=== PATIENT | male | born 1940 | race Caucasian/White ===

== ENCOUNTER 2017-07-28 01:18 | Emergency (ER) | END 2017-07-28 03:21 | disposition home or self-care (01) ==

== ENCOUNTER 2018-07-17 17:54 | Inpatient (IN) | payer MEDICARE, OTHER ==
[~2018-07-17] VITALS: Ht 160 cm; Wt 106.4 kg
[~2018-07-17 17:54] MED LIST: ASPI-817 PO; ATOR10TA65 PO; CELE100C PO; CILO50TA PO; DOCU250C58 PO; ERGO500013 PO; MEMA1CAP3 PO; OLME1TAB29 PO; TAMS0.4C2 PO
[2018-07-17] MEDS ORDERED: SODIUM CHLORIDE 0.9% 1L BAG IV* STA (17:55)
--- NOTE | 2018-07-17 18:13 | ERD ---
ER Documentation Chief Complaint Chief Complaint HPI This is a 77-year-old female with a history of coronary disease, status post stents, history of mild systolic heart failure, presents with intermittent exertional chest pain for the last 2 days. Patient states she also sometimes feels anxious. She denies any leg swelling, cough, hemoptysis or fever. She has been compliant with her medications, she denies any recent weight gain. Lying down makes her feel better ROS All systems reviewed and are negative except as per history of present illness. Medications Home Meds Reported Medications Memantine HCl/Donepezil HCl (Namzaric 28 mg-10 mg Capsule) 1 Each Cap.spr.24, 1 EACH PO 07/28/17 Aspirin* (Aspirin* EC) 81 Mg Tablet.dr, 81 MG PO DAILY, TAB 07/28/17 Atorvastatin Calcium (Atorvastatin Calcium) 10 Mg Tablet, 10 MG PO QHS, #30 TAB 07/28/17 Tamsulosin Hcl* (Tamsulosin Hcl*) 0.4 Mg Cap.er.24h, 0.4 MG PO DAILY, CAP 07/28/17 Uxkuntsexx-Mtcyahprev-CRNK (Tribenzor) 20-5-12.5 Mg Tablet, 1 TAB PO DAILY, TAB 07/28/17 Cilostazol* (Cilostazol*) 50 Mg Tablet, 50 MG PO DAILY, TAB 07/28/17 Celecoxib* (Celebrex*) 100 Mg Capsule, 100 MG PO DAILY, CAP 07/28/17 Docusate Sodium* (Colace*) 250 Mg Capsule, 250 MG PO BID, #60 CAP 07/28/17 Ergocalciferol (Vitamin D2) (VITAMIN D2) 50,000 Unit Capsule, 45671 UNIT PO, CAP 07/28/17 Allergies Allergies: Coded Allergies: No Known Allergy (Unverified , 07/28/17) PMhx/Soc History of Surgery: No Anesthesia Reaction: No Hx Cardiac Disorders: Yes (HTN. ANGINA. ) Hx Miscellaneous Medical Probl: Yes (OSTEOARTHRITIS. LUMBAR DISK PROBLEMS. ) Hx Alcohol Use: No Hx Substance Use: No Hx Tobacco Use: No Physical Exam Physical Exam Const: No acute distress Head: Atraumatic Eyes: Normal Conjunctiva ENT: Normal External Ears, Nose and Mouth. Neck: Full range of motion. No meningismus. Resp: Clear to auscultation bilaterally Cardio: Regular rate and rhythm, no murmurs Abd: Soft, non tender, non distended. Normal bowel sounds Skin: No petechiae or rashes Back: No midline or flank tenderness Ext: No cyanosis, or edema Neur: Awake and alert Psych: Normal Mood and Affect Results 24 hrs Current Medications Medications Dose Sig/Ramos Start Time Status Last (Trade) Ordered Route PRN Stop Time Admin Dose Reason Admin Sodium 500 ml BOLUS OVER 2 07/17/18 DC Chloride HOURS STAT 17:55 07/17/18 (NS) IV* 17:58 Procedures/MDM This 77-year-old female presents for evaluation of chest pain. Time of arrival she was chest pain-free, her blood pressure was initially 200 systolic, however this went down to 160s systolic without any intervention. She denied any discomfort while in the emergency department her cardiac workup was overall unremarkable, with a negative troponin. X-ray was negative, I do not suspect aortic dissection or pneumothorax, I have a lower suspicion for pulmonary embolism. Given her significant cardiac history, I feel that she is high risk and therefore recommend admission, the patient and her son agreed to this plan of care, she will be admitted to Dr. Espana. EKG: Rate/Rhythm: Normal Sinus Rhythm QRS, ST, T-waves: No changes consistent w/ acute ischemia Impression: No evidence of ischemia or arrhythmia Departure Diagnosis: Primary Impression: Chest pain Chest pain type: unspecified Qualified Codes: R07.9 - Chest pain, unspecified Condition: Stable CARLOS KWON MD Jul 17, 2018 18:13
[2018-07-17] MEDS ORDERED: FUROSEMIDE 20 MG INJ IV ONE (20:00)
[2018-07-17] MEDS ORDERED: LEVOFLOXACIN 750MG/D5W (PMX) 150 ML IVPB ONE (20:30)
--- NOTE | 2018-07-17 21:01 | ERD ---
ER Documentation Chief Complaint Chief Complaint sob starting last night. denies cp HPI This 77-year-old male presents for evaluation of shortness of breath. Family has pulse ox at home and is noted that his pulse ox has been around 86, brought in by EMS, he experienced a similar episode last year and was diagnosed with a pneumonia. Her family has no history of heart failure, the patient denies chest pain, he has been having a cough. There are no alleviating or aggravating factors he has had subjective fever at home ROS All systems reviewed and are negative except as per history of present illness. Medications Home Meds Reported Medications Memantine HCl/Donepezil HCl (Namzaric 28 mg-10 mg Capsule) 1 Each Cap.spr.24, 1 EACH PO 07/28/17 Aspirin* (Aspirin* EC) 81 Mg Tablet.dr, 81 MG PO DAILY, TAB 07/28/17 Atorvastatin Calcium (Atorvastatin Calcium) 10 Mg Tablet, 10 MG PO QHS, #30 TAB 07/28/17 Tamsulosin Hcl* (Tamsulosin Hcl*) 0.4 Mg Cap.er.24h, 0.4 MG PO DAILY, CAP 07/28/17 Diuhhkieqp-Fkewwnoean-OTQS (Tribenzor) 20-5-12.5 Mg Tablet, 1 TAB PO DAILY, TAB 07/28/17 Cilostazol* (Cilostazol*) 50 Mg Tablet, 50 MG PO DAILY, TAB 07/28/17 Celecoxib* (Celebrex*) 100 Mg Capsule, 100 MG PO DAILY, CAP 07/28/17 Docusate Sodium* (Colace*) 250 Mg Capsule, 250 MG PO BID, #60 CAP 07/28/17 Ergocalciferol (Vitamin D2) (VITAMIN D2) 50,000 Unit Capsule, 69043 UNIT PO, CAP 07/28/17 Allergies Allergies: Coded Allergies: No Known Allergy (Unverified , 07/28/17) PMhx/Soc Medical and Surgical Hx: pt denies Surgical Hx History of Surgery: No Anesthesia Reaction: No Hx Cardiac Disorders: Yes (HTN. ANGINA. ) Hx Miscellaneous Medical Probl: Yes (OSTEOARTHRITIS. LUMBAR DISK PROBLEMS. ) Hx Alcohol Use: No Hx Substance Use: No Hx Tobacco Use: No Smoking Status: Never smoker Physical Exam Vitals Vital Signs Date Temp Pulse Resp B/P (MAP) Pulse Ox O2 O2 Flow FiO2 Time Delivery Rate 07/17/18 Nasal 2 18:44 Cannula 07/17/18 99.9 81 20 151/86 95 Nasal 2.0 18:41 (107) Cannula 07/17/18 Nasal 2.0 18:15 Cannula 07/17/18 98.1 84 20 150/89 88 18:14 (109) Physical Exam Const: No acute distress Head: Atraumatic Eyes: Normal Conjunctiva ENT: Normal External Ears, Nose and Mouth. Neck: Full range of motion. No meningismus. Resp: Bilateral rales Cardio: Regular rate and rhythm, no murmurs Abd: Soft, non tender, non distended. Normal bowel sounds Skin: No petechiae or rashes Back: No midline or flank tenderness Ext: No cyanosis, or edema Neur: Awake and alert Psych: Normal Mood and Affect Result Diagram: 07/17/18183107/17/181831 Results 24 hrs Laboratory Tests Test 07/17/18 18:21 07/17/18 18:22 07/17/18 18:32 07/17/18 18:41 Urine Color YELLOW Urine Clarity CLEAR Urine pH 7.0 Urine Specific 1.018 [place] Urine Ketones NEGATIVE mg/dL Urine Nitrite NEGATIVE mg/dL Urine Bilirubin NEGATIVE mg/dL Urine Urobilinogen NEGATIVE mg/dL Urine Leukocyte NEGATIVE Jose/ul Esterase Urine Microscopic 3 /HPF RBC Urine Microscopic 1 /HPF WBC Urine Mucus FEW /HPF Urine Hemoglobin 1+ mg/dL Urine Glucose NEGATIVE mg/dL Urine Total Protein NEGATIVE mg/dl Lactic Acid Level 1.4 mmol/L B-Type Natriuretic 575 PG/ML Peptide White Blood Count 10.8 10^3/ul Red Blood Count 4.74 10^6/ul Hemoglobin 14.7 g/dl Hematocrit 45.0 % Mean Corpuscular 94.9 fl Volume Mean Corpuscular 31.0 pg Hemoglobin Mean Corpuscular 32.7 g/dl Hemoglobin Concent Red Cell 12.4 % Distribution Width Platelet Count 169 10^3/UL Mean Platelet 9.6 fl Volume Immature 0.500 % Granulocytes % Neutrophils % 82.7 % Lymphocytes % 8.2 % Monocytes % 7.9 % Eosinophils % 0.3 % Basophils % 0.4 % Nucleated Red Blood 0.0 /100WBC Cells % Immature 0.050 10^3/ul Granulocytes # Neutrophils # 9.0 10^3/ul Lymphocytes # 0.9 10^3/ul Monocytes # 0.9 10^3/ul Eosinophils # 0.0 10^3/ul Basophils # 0.0 10^3/ul Nucleated Red Blood 0.0 10^3/ul Cells # Prothrombin Time 14.9 Sec Prothrombin Time 1.2 Ratio INR International 1.16 Normalized Ratio Activated 31.3 Sec Partial Thromboplas t Time Sodium Level 137 mmol/L Potassium Level 4.0 mmol/L Chloride Level 99 mmol/L Carbon Dioxide 30 mmol/L Level Anion Gap 8 Blood Urea Nitrogen 17 mg/dl Creatinine 0.74 mg/dl Est Glomerular mL/min Filtrat Rate mL/min Glucose Level 106 mg/dl Calcium Level 8.9 mg/dl Total Bilirubin 1.3 mg/dl Direct Bilirubin 0.00 mg/dl Indirect Bilirubin 1.3 mg/dl Aspartate Amino 22 IU/L Transf (AST/SGOT) Alanine 13 IU/L Aminotransferase (A LT/SGPT) Alkaline 50 IU/L Phosphatase Troponin I < 0.012 ng/ml Total Protein 7.2 g/dl Albumin 3.7 g/dl Globulin 3.50 g/dl Albumin/Globulin 1.05 Ratio POC Venous Lactate 1.3 mmol/L Current Medications Medications Dose Sig/Ramos Start Time Status Last (Trade) Ordered Route PRN Stop Time Admin Dose Reason Admin Sodium 500 ml BOLUS OVER 2 07/17/18 DC 07/17/18 Chloride HOURS STAT 17:55 07/17/18 17:55 (NS) IV* 17:58 Furosemide 20 mg ONCE ONCE 07/17/18 DC (Lasix) IV 20:00 07/17/18 20:01 150 ml @ ONCE ONCE 07/17/18 Levofloxacin/ 100 mls/hr IVPB 20:30 07/17/18 Dextrose 21:59 Procedures/MDM This is a 77-year-old male presents for evaluation of shortness of breath. Thang gallardo also with subjective fevers at home, he was placed on nasal cannula, the patient denies any chest pain. His troponin was negative, his chest x-ray showed pneumonia versus CHF, his blood pressure is mildly elevated and he has no fever, this point I think there may be a component of CHF, thus he will be diuresed with Lasix, given his diagnoses not definitive he will be treated with Levaquin, this point I do not suspect sepsis or septic shock. Patient will be admitted to Dr. Meza EKG: Rate/Rhythm: Normal Sinus Rhythm QRS, ST, T-waves: No changes consistent w/ acute ischemia Impression: No evidence of ischemia or arrhythmia Departure Diagnosis: Primary Impression: Chest pain Chest pain type: unspecified Qualified Codes: R07.9 - Chest pain, unspecified Condition: Stable CARLOS KWON MD Jul 17, 2018 21:01
[2018-07-17 22:11] VITALS: PULSE 87
[2018-07-17 22:12] VITALS: BP 135/86; PULSE 88; RESP 18
[2018-07-17 22:36] VITALS: Ht 160 cm; Wt 106.4 kg
[2018-07-17 23:29] VITALS: BP 155/71; PULSE 79; RESP 18
[2018-07-18] VITALS (11 sets, daily range): BP systolic 101–159; BP diastolic 52–74; PULSE 73–118; RESP 17–20
--- NOTE | 2018-07-18 01:44 | HP ---
Date/Time of Note Date/Time of Note DATE: 07/18/18 TIME: 01:44 Assessment/Plan VTE Prophylaxis Pharmacological prophylaxis: heparin Lines/Catheters IV Catheter Type (from Nrs): Peripheral IV Urinary Cath still in place: No Assessment/Plan Assessment/Plan 77-year-old male with a history of hypertension, dyslipidemia, Parkinson's disease, BPH brought to the ER for shortness of breath and hypoxia, most likely secondary to pulmonary edema or pneumonia PLAN Supplemental oxygen, bronchodilators, Lasix, IV antibiotic will obtain 2D echo Continue home meds. Adjust as needed PT eval prior to discharge Result Diagram: 07/17/18 1832 07/17/18 1832 Results 24hrs Laboratory Tests Test 07/17/18 18:21 07/17/18 18:22 07/17/18 18:32 07/17/18 18:41 Urine Color YELLOW Urine Clarity CLEAR Urine pH 7.0 Urine Specific [place] 1.018 Urine Ketones NEGATIVE Urine Nitrite NEGATIVE Urine Bilirubin NEGATIVE Urine Urobilinogen NEGATIVE Urine Leukocyte Esterase NEGATIVE Urine Microscopic RBC 3 Urine Microscopic WBC 1 Urine Mucus FEW A Urine Hemoglobin 1+ H Urine Glucose NEGATIVE Urine Total Protein NEGATIVE Lactic Acid Level 1.4 B-Type Natriuretic 575 H Peptide White Blood Count 10.8 Red Blood Count 4.74 Hemoglobin 14.7 Hematocrit 45.0 Mean Corpuscular Volume 94.9 Mean Corpuscular 31.0 Hemoglobin Mean Corpuscular 32.7 Hemoglobin Concent Red Cell Distribution 12.4 Width Platelet Count 169 Mean Platelet Volume 9.6 Immature Granulocytes % 0.500 H Neutrophils % 82.7 H Lymphocytes % 8.2 L Monocytes % 7.9 Eosinophils % 0.3 Basophils % 0.4 Nucleated Red Blood 0.0 Cells % Immature Granulocytes # 0.050 H Neutrophils # 9.0 H Lymphocytes # 0.9 Monocytes # 0.9 Eosinophils # 0.0 Basophils # 0.0 Nucleated Red Blood 0.0 Cells # Prothrombin Time 14.9 Prothrombin Time Ratio 1.2 INR International 1.16 Normalized Ratio Activated 31.3 Partial Thromboplast Time Sodium Level 137 Potassium Level 4.0 Chloride Level 99 Carbon Dioxide Level 30 Anion Gap 8 Blood Urea Nitrogen 17 Creatinine 0.74 Est Glomerular Filtrat Rate mL/min Glucose Level 106 Calcium Level 8.9 Total Bilirubin 1.3 Direct Bilirubin 0.00 Indirect Bilirubin 1.3 H Aspartate Amino 22 Transf (AST/SGOT) Alanine 13 Aminotransferase (ALT/SG PT) Alkaline Phosphatase 50 Troponin I < 0.012 Total Protein 7.2 Albumin 3.7 Globulin 3.50 H Albumin/Globulin Ratio 1.05 POC Venous Lactate 1.3 HPI/ROS Admit Date/Time Admit Date/Time Jul 17, 2018 at 20:13 Hx of Present Illness This is a 77-year-old male with a history of hypertension, dyslipidemia, Parkinson's disease, BPH who was brought to the ER for shortness of breath and dry cough. Symptom has been progressively getting worse for the past few days. Pulse ox at home showed oxygen saturation of 86%. When presented to ER, O2 sat was 88% on room air. Chest x-ray shows edema versus pneumonia. No chest pain. PMH/Family/Social Past Medical History PMH/Family/Social Past Medical History Medical History: other (see hpi) Coded Allergies: No Known Drug Allergy (Verified Allergy, Unknown, 02/27/16) Past Surgical History Past Surgical Hx: other (see hpi) Family History Significant Family History: no pertinent family hx Social History Alcohol Use: other Smoking Status: Unknown if ever smoked Drug Use: other Medications Current Medications Influenza Virus Vaccine Quadrival (Fluzone) 0.5 ml ONCE ONCE IM* ; Start 07/18/18 at 10:00; Stop 07/18/18 at 10:01 IV Flush (NS 3 ml) 3 ml PER PROTOCOL IV ; Start 07/18/18 at 02:00; Status UNV Ondansetron HCl (Zofran Inj) 4 mg Q6H PRN IV NAUSEA AND/OR VOMITING; Start 07/18/18 at 02:00; Status UNV Acetaminophen (Tylenol Tab) 650 mg Q6H PRN PO PAIN LEVEL 1-3 OR FEVER; Start 07/18/18 at 02:00; Status UNV Acetaminophen/ Hydrocodone Bitart ([place] (5/325)) 1 tab Q6H PRN PO PAIN LEVEL 4-6; Start 07/18/18 at 02:00; Status UNV Heparin Sodium (Porcine) (Heparin (5000 Units/1ml)) 5,000 unit Q12 SC ; Start 07/18/18 at 09:00; Status UNV Albuterol/ Ipratropium (Duoneb) 3 ml Q2H RESP THERAPY PRN HHN SHORTNESS OF BREATH; Start 07/18/18 at 02:00; Status UNV Aspirin (Halfprin) 81 mg DAILY PO ; Start 07/18/18 at 09:00; Status UNV Atorvastatin Calcium (Lipitor) 10 mg QHS PO ; Start 07/18/18 at 21:00; Status UNV Cilostazol (Pletal) 50 mg DAILY PO ; Start 07/18/18 at 09:00; Status UNV Docusate Sodium (Colace) 250 mg BID PO ; Start 07/18/18 at 09:00; Status UNV Tamsulosin HCl (Flomax) 0.4 mg DAILY PO ; Start 07/18/18 at 09:00; Status UNV Miscellaneous Information 1 tab DAILY PO ; Start 07/18/18 at 09:00; Status UNV Levofloxacin/ Dextrose 100 ml @ 100 mls/hr DAILY IVPB ; Start 07/18/18 at 09:00; Status UNV Furosemide (Lasix) 20 mg BID DIURETICS PO ; Start 07/18/18 at 06:00; Status UNV Levofloxacin/ Dextrose 100 ml @ 100 mls/hr DAILY IVPB ; Start 07/18/18 at 09:00; Status UNV Coded Allergies: No Known Allergy (Unverified , 07/28/17) Social History Smoking Status: Never smoker Exam/Review of Systems Vital Signs Vitals Vital Signs Date Temp Pulse Resp B/P (MAP) Pulse Ox O2 O2 Flow FiO2 Time Delivery Rate 07/18/18 73 00:00 07/17/18 98.2 18 155/71 93 23:29 (99) 07/17/18 Nasal 3.0 22:30 Cannula Intake and Output 07/17/18 07/17/18 07/18/18 1515:00 23:00 07:00 IntakeIntake Total 300 ml OutputOutput Total 700 ml BalanceBalance -400 ml Exam Constitutional: other (No acute distress) Head: normocephalic, atraumatic Eyes: PERRL Respiratory: other (Decreased breath sounds at the base bilaterally) Cardiovascular: regular rate and rhythm, nl pulses Gastrointestinal: soft Extremities: other (1+PITTING EDEMA) LAVERNE ABREU MD Jul 18, 2018 01:44
[2018-07-18] MEDS ORDERED: NACL 0.9% 3 ML SYG IV SCH (02:00)
[2018-07-18] MEDS ORDERED: ACETAMINOPHEN 325 MG TAB PO PRN (02:00)
[2018-07-18] MEDS ORDERED: ONDANSETRON 4 MG INJ IV PRN (02:00)
[2018-07-18] MEDS ORDERED: ALBUTEROL/IPRATROPIUM (NEB) 3 ML AMP HHN PRN (02:00)
[2018-07-18] MEDS ORDERED: HYDROCODONE/APAP (5/325) TAB PO PRN (02:00)
[2018-07-18] MEDS ORDERED: FUROSEMIDE 20 MG TAB PO SCH (06:00)
[2018-07-18] MEDS: AMLODIPINE 5 MG TAB PO SCH (08:40)
[2018-07-18] MEDS: LOSARTAN 50 MG TAB PO SCH (08:40)
[2018-07-18] MEDS: CILOSTAZOL 100 MG TAB PO SCH (08:40)
[2018-07-18] MEDS: DOCUSATE SODIUM 250 MG CAP PO SCH ×2 (08:41→21:50)
[2018-07-18] MEDS: HYDROCHLOROTHIAZIDE 12.5 MG CAP PO SCH (08:41)
[2018-07-18] MEDS: TAMSULOSIN (SR) 0.4 MG CAP PO SCH (08:41)
[2018-07-18] MEDS: ASPIRIN (EC) 81 MG TAB PO SCH (08:41)
[2018-07-18] MEDS: LEVOFLOXACIN 500MG/D5W (PMX) 100 ML IVPB SCH (08:41)
[2018-07-18] MEDS: HEPARIN 5,000 UNIT/1 ML VIAL SC SCH ×2 (09:00→22:20)
[2018-07-18] MEDS ORDERED: LEVOFLOXACIN 500MG/D5W (PMX) 100 ML IVPB SCH (09:00)
[2018-07-18] MEDS ORDERED: NON-FORMULARY/PATIENT OWN MED (Olmesartan-Amlodipine-HCTZ (Tribenzor) 1 TAB) PO SCH (09:00)
[2018-07-18] MEDS ORDERED: INFLUENZA VIRUS VACCINE 0.5 ML (DISPENSING) IM* ONE (10:00)
--- NOTE | 2018-07-18 11:05 | PN ---
Date/Time of Note Date/Time of Note DATE: 07/18/18 TIME: 11:05 Assessment/Plan VTE Prophylaxis Risk score (from Nsg)>0 risk: 6 SCD applied (from Nsg): Yes Pharmacological prophylaxis: heparin Lines/Catheters IV C[facility]ter Type (from [facility]): Peripheral IV Urinary Cath still in place: No Assessment/Plan Hospital Course SUBJECTIVE: Denies any chest pain or dyspnea. Complains of a sore throat. OBJECTIVE: Physical Exam General: Morbidly obese 77 year-old male lying in bed in no apparent distress. HEENT: Normocephalic, atraumatic. Eyes: Anicteric sclerae, conjunctivae clear. ENT: Nasal septum midline, oral mucosa moist. Neck supple. Respiratory: Bilaterally diminished breath sounds. Bibasilar rales. Cardiovascular: S1, S2 heard. No murmurs or gallops. Abdomen: Soft, nontender, and nondistended. Bowel sounds positive in all 4 quadrants. Genitourinary: Deferred. Extremities: No cyanosis, no clubbing. Trace B/L pedal edema. Peripheral pulses palpable. Neurologic: Cranial nerves II through XII grossly intact. The patient is awake, alert, and oriented. Skin: Normal skin turgor. No skin rashes. Labs & Vitals per chart ASSESSMENT & PLAN 77-year-old male with comorbidities including dyslipidemia, hypertension, BPH, and Parkinson's disease who was brought to the emergency room because of shortness of breath, who was found to have evidence of underlying patchy airspace disease in the mid and lower lung zones, who was admitted to inpatient setting for further treatment and evaluation. 1. Acute respiratory failure. -Hypoxic. -Continue inhaled bronchodilators. -Etiology could be secondary to underlying congestive heart failure exace rbation. -Continue supplemental oxygen. 2. Acute congestive heart failure exacerbation. Systolic versus diastolic dysfunction. -Continue diuresis. -Pending 2D echocardiogram. 3. Essential hypertension. -Continue antihypertensives. 4. BPH. -Continue Flomax. 5. Dyslipidemia. -Continue statins. 6. Parkinson's disease. -Patient stopped taking antiparkinsonian medications. 7. Chronic right foot plantar pain. -On Pletal for it. -Obtain arterial ultrasound to evaluate for any arterial insufficiency. 8. Obesity. -BMI more than 41 kg/m. -Will advise weight reduction. 9. Fluids, electrolytes, and nutrition. -Regular diet. 10. DVT prophylaxis -Subcutaneous heparin. 11. Plan. -Continue diuretic therapy. -Await 2D echocardiogram. -Bilateral infiltrates noted on chest x-ray is most likely pulmonary edema. -Will consider discontinuing the antibiotics after reviewing the echocardiogram and doing a repeat chest x-ray. The patient was in collaboration with Dr. Jorge. Result Diagram: 07/18/18 0505 07/18/18 0505 Results 24hrs Laboratory Tests Test 07/17/18 18:21 07/17/18 18:22 07/17/18 18:32 07/17/18 18:41 Urine Color YELLOW Urine Clarity CLEAR Urine pH 7.0 Urine Specific [place] 1.018 Urine Ketones NEGATIVE Urine Nitrite NEGATIVE Urine Bilirubin NEGATIVE Urine Urobilinogen NEGATIVE Urine Leukocyte Esterase NEGATIVE Urine Microscopic RBC 3 Urine Microscopic WBC 1 Urine Mucus FEW A Urine Hemoglobin 1+ H Urine Glucose NEGATIVE Urine Total Protein NEGATIVE Lactic Acid Level 1.4 B-Type Natriuretic 575 H Peptide White Blood Count 10.8 Red Blood Count 4.74 Hemoglobin 14.7 Hematocrit 45.0 Mean Corpuscular Volume 94.9 Mean Corpuscular 31.0 Hemoglobin Mean Corpuscular 32.7 Hemoglobin Concent Red Cell Distribution 12.4 Width Platelet Count 169 Mean Platelet Volume 9.6 Immature Granulocytes % 0.500 H Neutrophils % 82.7 H Lymphocytes % 8.2 L Monocytes % 7.9 Eosinophils % 0.3 Basophils % 0.4 Nucleated Red Blood 0.0 Cells % Immature Granulocytes # 0.050 H Neutrophils # 9.0 H Lymphocytes # 0.9 Monocytes # 0.9 Eosinophils # 0.0 Basophils # 0.0 Nucleated Red Blood 0.0 Cells # Prothrombin Time 14.9 Prothrombin Time Ratio 1.2 INR International 1.16 Normalized Ratio Activated 31.3 Partial Thromboplast Time Sodium Level 137 Potassium Level 4.0 Chloride Level 99 Carbon Dioxide Level 30 Anion Gap 8 Blood Urea Nitrogen 17 Creatinine 0.74 Est Glomerular Filtrat Rate mL/min Glucose Level 106 Calcium Level 8.9 Total Bilirubin 1.3 Direct Bilirubin 0.00 Indirect Bilirubin 1.3 H Aspartate Amino 22 Transf (AST/SGOT) Alanine 13 Aminotransferase (ALT/SG PT) Alkaline Phosphatase 50 Troponin I < 0.012 Total Protein 7.2 Albumin 3.7 Globulin 3.50 H Albumin/Globulin Ratio 1.05 POC Venous Lactate 1.3 Test 07/18/18 05:05 White Blood Count 8.3 # Red Blood Count 4.68 L Hemoglobin 14.9 Hematocrit 44.9 Mean Corpuscular Volume 95.9 Mean Corpuscular 31.8 Hemoglobin Mean Corpuscular 33.2 Hemoglobin Concent Red Cell Distribution 12.9 Width Platelet Count 148 Mean Platelet Volume 9.8 Immature Granulocytes % 0.200 Neutrophils % 74.8 Lymphocytes % 12.5 L Monocytes % 10.1 Eosinophils % 1.9 Basophils % 0.5 Nucleated Red Blood 0.0 Cells % Immature Granulocytes # 0.020 Neutrophils # 6.2 Lymphocytes # 1.0 Monocytes # 0.8 Eosinophils # 0.2 Basophils # 0.0 Nucleated Red Blood 0.0 Cells # Sodium Level 138 Potassium Level 3.9 Chloride Level 98 Carbon Dioxide Level 33 H Anion Gap 7 Blood Urea Nitrogen 19 Creatinine 0.91 Est Glomerular Filtrat Rate mL/min Glucose Level 95 Calcium Level 8.8 Magnesium Level 1.9 Total Bilirubin 1.4 H Direct Bilirubin 0.00 Indirect Bilirubin 1.4 H Aspartate Amino 24 Transf (AST/SGOT) Alanine 11 L Aminotransferase (ALT/SG PT) Alkaline Phosphatase 50 Total Protein 7.2 Albumin 3.8 Globulin 3.40 H Albumin/Globulin Ratio 1.11 Exam/Review of Systems Vital Signs Vitals Vital Signs Date Temp Pulse Resp B/P (MAP) Pulse Ox O2 O2 Flow FiO2 Time Delivery Rate 07/18/18 91 09:15 07/18/18 Nasal 3.0 07:20 Cannula 07/18/18 97.4 18 154/71 94 07:20 (98) Intake and Output 07/17/18 07/17/18 07/18/18 1515:00 23:00 07:00 IntakeIntake Total 500 ml OutputOutput Total 900 ml BalanceBalance -400 ml Medications Medications Current Medications IV Flush (NS 3 ml) 3 ml PER PROTOCOL IV ; Start 07/18/18 at 02:00 Ondansetron HCl (Zofran Inj) 4 mg Q6H PRN IV NAUSEA AND/OR VOMITING; Start 07/18/18 at 02:00 Acetaminophen (Tylenol Tab) 650 mg Q6H PRN PO PAIN LEVEL 1-3 OR FEVER; Start 07/18/18 at 02:00 Acetaminophen/ Hydrocodone Bitart ([place] (5/325)) 1 tab Q6H PRN PO PAIN LEVEL 4-6; Start 07/18/18 at 02:00 Heparin Sodium (Porcine) (Heparin (5000 Units/1ml)) 5,000 unit Q12 SC Last administered on 07/18/18 09:00; Admin Dose 5,000 UNIT; Start 07/18/18 at 09:00 Albuterol/ Ipratropium (Duoneb) 3 ml Q2H RESP THERAPY PRN HHN SHORTNESS OF BREATH; Start 07/18/18 at 02:00 Aspirin (Halfprin) 81 mg DAILY PO Last administered on 07/18/18 08:41; Admin Dose 81 MG; Start 07/18/18 at 09:00 Atorvastatin Calcium (Lipitor) 10 mg QHS PO ; Start 07/18/18 at 21:00 Cilostazol (Pletal) 50 mg DAILY PO Last administered on 07/18/18 08:40; Admin Dose 50 MG; Start 07/18/18 at 09:00 Docusate Sodium (Colace) 250 mg BID PO Last administered on 07/18/18 08:41; Admin Dose 250 MG; Start 07/18/18 at 09:00 Tamsulosin HCl (Flomax) 0.4 mg DAILY PO Last administered on 07/18/18 08:41; Admin Dose 0.4 MG; Start 07/18/18 at 09:00 Levofloxacin/ Dextrose 100 ml @ 100 mls/hr DAILY IVPB Last administered on 07/18/18 08:41; Admin Dose 100 MLS/HR; Start 07/18/18 at 09:00 Furosemide (Lasix) 20 mg BID DIURETICS PO Last administered on 07/18/18 05:32; Admin Dose 20 MG; Start 07/18/18 at 06:00 Losartan Potassium (Cozaar) 100 mg DAILY PO Last administered on 07/18/18 08:40; Admin Dose 100 MG; Start 07/18/18 at 09:00 Hydrochlorothiazide (Hydrochlorothiazide) 12.5 mg DAILY PO Last administered on 07/18/18 08:41; Admin Dose 12.5 MG; Start 07/18/18 at 09:00 Amlodipine Besylate (Norvasc) 5 mg DAILY PO Last administered on 07/18/18 08:40; Admin Dose 5 MG; Start 07/18/18 at 09:00 NICK VERDUZCO NP Jul 18, 2018 11:05
--- NOTE | 2018-07-18 15:26 | RADRPT ---
Echocardiogram Report Patient Name: REINA ROSS Gender: Male Date: 1940 Study Date: 18-Jul-2018 [employer]: Cyndee Parr [facility] Location: 623 Ref. Physician: LAVERNE ABREU Quality: Adequate Procedures: Transthoracic echocardiogram with complete 2D, M-Mode, and doppler examination. Indications: Shortness of breath. 2D/M Mode Doppler Measurement Value Normal Ranges Measurement Value Normal Ranges LVIDd 2D 4.7 3.5 - 5.6 cm AV Peak Chirag 1.5 m/sec LVIDs 2D 3.9 2.1 - 4.1 cm AV Peak PG 9.0 mmHg LVPWd 2D 1.4 0.6 - 1.1 cm AI Peak PG 61.0 mmHg IVSd 2D 1.4 0.6 - 1.1 cm AI Peak Chirag 3.9 m/sec AoR Diam 2D 3.6 2.0 - 3.7 cm AI PHT 728.0 msec LA/Ao 2D 1 0 - 1 LVOT Peak Chirag 1.0 m/sec LA Dimen 2D 4.1 2.3 - 4.0 cm LVOT Peak PG 4.0 mmHg MV E Peak Chirag 0.6 m/sec MV A Peak Chirag 0.8 m/sec MV E/A 0.7 MV Decel Time 229 msec Lat E` Chirag 0.1 m/sec Lateral E/E` 9.3 MV E/A 0.7 Findings Left Ventricle: Normal left ventricular systolic function. Overall, normal left ventricular systolic function. Not all segments visualized. Normal left ventricular cavity size. Moderate concentric left ventricular hypertrophy. Ejection fraction is visually estimated at 55 %. Tissue Doppler/Mitral Doppler indices are consistent with impaired relaxation (Stage I diastolic dysfunction). Right Ventricle: Normal right ventricular size. Normal right ventricular systolic function. Left Atrium: There is mild enlargement of left atrium. Right Atrium: The right atrium is normal in size. Mitral Valve: Normal appearance and function of the mitral valve with trace physiologic regurgitation. Aortic Valve: No hemodynamically significant aortic stenosis by doppler. Aortic cusps appear mildly calcified. Trace to mild aortic valve regurgitation. Tricuspid Valve: Normal appearance of the tricuspid valve. Unable to obtain RVSP due to minimal presence of tricuspid regurgitation. Pulmonic Valve: Normal pulmonic valve appearance. There is trace pulmonic regurgitation. Pericardium: Normal pericardium with no significant pericardial effusion. Aorta: Normal aortic root. IVC: Normal size and normal respiratory collapse consistent with normal right atrial pressure. Conclusions Normal left ventricular systolic function. Overall, normal left ventricular systolic function. Not all segments visualized. Normal left ventricular cavity size. Moderate concentric left ventricular hypertrophy. Ejection fraction is visually estimated at 55 %. Tissue Doppler/Mitral Doppler indices are consistent with impaired relaxation (Stage I diastolic dysfunction). There is mild enlargement of left atrium. Normal appearance and function of the mitral valve with trace physiologic regurgitation. No hemodynamically significant aortic stenosis by doppler. Aortic cusps appear mildly calcified. Trace to mild aortic valve regurgitation. Normal appearance of the tricuspid valve. Unable to obtain RVSP due to minimal presence of tricuspid regurgitation. Electronically Signed By: Enoch Garcia 18-Jul-2018 15:25:25 -0800 Patient Name: REINA ROSS Study Date: 18-Jul-2018 [id number]
[2018-07-18] MEDS: FUROSEMIDE 20 MG INJ IV SCH (17:07)
[2018-07-18] MEDS ORDERED: POLYETHYLENE GLYCOL 17 GM PACKET ONE (21:47)
[2018-07-18] MEDS: ATORVASTATIN 10 MG TAB PO SCH (21:51)
[2018-07-18] MEDS ORDERED: POLYETHYLENE GLYCOL 17 GM PACKET PO PRN (22:00)
[2018-07-19] VITALS (12 sets, daily range): BP systolic 100–131; BP diastolic 55–72; PULSE 75–128; RESP 18–20
[2018-07-19] MEDS: FUROSEMIDE 20 MG INJ IV SCH (06:08)
[2018-07-19] MEDS: TAMSULOSIN (SR) 0.4 MG CAP PO SCH (08:15)
[2018-07-19] MEDS: ASPIRIN (EC) 81 MG TAB PO SCH (08:15)
[2018-07-19] MEDS: DOCUSATE SODIUM 250 MG CAP PO SCH ×2 (08:16→21:44)
[2018-07-19] MEDS: HYDROCHLOROTHIAZIDE 12.5 MG CAP PO SCH (08:16)
[2018-07-19] MEDS: CILOSTAZOL 100 MG TAB PO SCH (08:16)
[2018-07-19] MEDS: LOSARTAN 50 MG TAB PO SCH (08:16)
[2018-07-19] MEDS: AMLODIPINE 5 MG TAB PO SCH (08:16)
[2018-07-19] MEDS: LEVOFLOXACIN 500MG/D5W (PMX) 100 ML IVPB SCH (08:17)
[2018-07-19] MEDS: HEPARIN 5,000 UNIT/1 ML VIAL SC SCH ×2 (08:24→21:50)
--- NOTE | 2018-07-19 15:03 | PN ---
Date/Time of Note Date/Time of Note DATE: 07/19/18 TIME: 15:02 Assessment/Plan VTE Prophylaxis Risk score (from Nsg)>0 risk: 5 SCD applied (from Nsg): Yes Pharmacological prophylaxis: heparin Lines/Catheters IV Catheter Type (from [email or web address] Peripheral IV Urinary Cath still in place: No Assessment/Plan Hospital Course SUBJECTIVE: Denies any chest pain. Continues to have dyspnea. OBJECTIVE: Physical Exam General: Morbidly obese 77 year-old male sitting in a chair in mild respiratory distress. HEENT: Normocephalic, atraumatic. Eyes: Anicteric sclerae, conjunctivae clear. ENT: Nasal septum midline, oral mucosa moist. Neck supple. Respiratory: Bilaterally diminished breath sounds. Bibasilar rales. Minimal use of accessory muscles of respiration. Cardiovascular: S1, S2 heard. Regular rate and rhythm. Abdomen: Soft, nontender, and nondistended. Bowel sounds positive in all 4 quadrants. Genitourinary: Deferred. Extremities: No cyanosis, no clubbing. Trace B/L pedal edema. Peripheral pulses palpable. Neurologic: Cranial nerves II through XII grossly intact. The patient is awake, alert, and oriented. Skin: Normal skin turgor. No skin rashes. Labs & Vitals per chart ASSESSMENT & PLAN 77-year-old male with comorbidities including dyslipidemia, hypertension, BPH, and Parkinson's disease who was brought to the emergency room because of shortness of breath, who was found to have evidence of underlying patchy airspace disease in the mid and lower lung zones, who was admitted to inpatient setting for further treatment and evaluation. 1. Acute respiratory failure. -Hypoxic. -Continue inhaled bronchodilators. -Etiology could be secondary to underlying pneumonia along with a component of diastolic heart failure.. -Continue supplemental oxygen. 2. Essential hypertension. -Continue antihypertensives. 3. BPH. -Continue Flomax. 4. Dyslipidemia. -Continue statins. 5. Parkinson's disease. -Patient stopped taking antiparkinsonian medications. 6. Chronic right foot plantar pain. -On Pletal for it. -Bilateral lower extremity arterial ultrasound showing moderate small vessel ischemia in the right foot with a decreased ankle brachial index in the right to moderate to severe small vessel ischemia in the left foot with decreased ankle brachial index in the left dorsalis pedis artery. 7. Obesity. -BMI more than 41 kg/m. -Will advise weight reduction. 8. Fluids, electrolytes, and nutrition. -Regular diet. 9. DVT prophylaxis -Subcutaneous heparin. 10. Plan. -Continue gentle diuretic therapy. -Continue antimicrobials. -Obtain cardiology consult for expert opinion. The patient was seen in collaboration with Dr. Jorge. Result Diagram: 07/19/1844907/19/180 Results 24hrs Laboratory Tests Test 07/19/18 04:50 White Blood Count 7.2 Red Blood Count 4.76 Hemoglobin 14.9 Hematocrit 45.7 Mean Corpuscular Volume 96.0 Mean Corpuscular Hemoglobin 31.3 Mean Corpuscular Hemoglobin Concent 32.6 Red Cell Distribution Width 12.8 Platelet Count 160 Mean Platelet Volume 10.1 Immature Granulocytes % 0.300 Neutrophils % 66.2 Lymphocytes % 18.3 Monocytes % 11.3 H Eosinophils % 3.5 Basophils % 0.4 Nucleated Red Blood Cells % 0.0 Immature Granulocytes # 0.020 Neutrophils # 4.8 Lymphocytes # 1.3 Monocytes # 0.8 Eosinophils # 0.3 Basophils # 0.0 Nucleated Red Blood Cells # 0.0 Sodium Level 142 Potassium Level 4.2 Chloride Level 97 Carbon Dioxide Level 37 H Anion Gap 8 Blood Urea Nitrogen 26 H Creatinine 0.99 Est Glomerular Filtrat Rate mL/min Glucose Level 100 Calcium Level 8.9 Phosphorus Level 4.7 Magnesium Level 2.0 B-Type Natriuretic Peptide 154 Exam/Review of Systems Vital Signs Vitals Vital Signs Date Temp Pulse Resp B/P (MAP) Pulse Ox O2 O2 Flow FiO2 Time Delivery Rate 07/19/18 97 Nasal 2.0 13:06 Cannula 07/19/18 128 12:48 07/19/18 98.5 18 105/59 11:18 (74) Intake and Output 07/18/18 07/18/18 07/19/18 1515:00 23:00 07:00 IntakeIntake Total 100 ml 450 ml 400 ml OutputOutput Total 5 ml BalanceBalance 100 ml 445 ml 400 ml Medications Medications Current Medications IV Flush (NS 3 ml) 3 ml PER PROTOCOL IV ; Start 07/18/18 at 02:00 Ondansetron HCl (Zofran Inj) 4 mg Q6H PRN IV NAUSEA AND/OR VOMITING; Start 07/18/18 at 02:00 Acetaminophen (Tylenol Tab) 650 mg Q6H PRN PO PAIN LEVEL 1-3 OR FEVER; Start 07/18/18 at 02:00 Acetaminophen/ Hydrocodone Bitart ([place] (5/325)) 1 tab Q6H PRN PO PAIN LEVEL 4-6; Start 07/18/18 at 02:00 Heparin Sodium (Porcine) (Heparin (5000 Units/1ml)) 5,000 unit Q12 SC Last administered on 07/19/18 08:24; Admin Dose 5,000 UNIT; Start 07/18/18 at 09:00 Albuterol/ Ipratropium (Duoneb) 3 ml Q2H RESP THERAPY PRN HHN SHORTNESS OF BREATH; Start 07/18/18 at 02:00 Aspirin (Halfprin) 81 mg DAILY PO Last administered on 07/19/18 08:15; Admin Dose 81 MG; Start 07/18/18 at 09:00 Atorvastatin Calcium (Lipitor) 10 mg QHS PO Last administered on 07/18/18at 21:51; Admin Dose 10 MG; Start 07/18/18 at 21:00 Cilostazol (Pletal) 50 mg DAILY PO Last administered on 07/19/18 08:16; Admin Dose 50 MG; Start 07/18/18 at 09:00 Docusate Sodium (Colace) 250 mg BID PO Last administered on 07/19/18 08:16; Admin Dose 250 MG; Start 07/18/18 at 09:00 Tamsulosin HCl (Flomax) 0.4 mg DAILY PO Last administered on 07/19/18 08:15; Admin Dose 0.4 MG; Start 07/18/18 at 09:00 Levofloxacin/ Dextrose 100 ml @ 100 mls/hr DAILY IVPB Last administered on 07/19/18 08:17; Admin Dose 100 MLS/HR; Start 07/18/18 at 09:00 Losartan Potassium (Cozaar) 100 mg DAILY PO Last administered on 07/19/18 08:16; Admin Dose 100 MG; Start 07/18/18 at 09:00 Hydrochlorothiazide (Hydrochlorothiazide) 12.5 mg DAILY PO Last administered on 07/19/18 08:16; Admin Dose 12.5 MG; Start 07/18/18 at 09:00 Amlodipine Besylate (Norvasc) 5 mg DAILY PO Last administered on 07/19/18 08:16; Admin Dose 5 MG; Start 07/18/18 at 09:00 Polyethylene Glycol (Miralax) 17 gm DAILY PRN PO CONSTIPATION Last administered on 07/19/18at 06:07; Admin Dose 17 GM; Start 07/18/18 at 22:00 Furosemide (Lasix) 40 mg BID DIURETICS IV ; Start 07/19/18 at 18:00 NICK VERDUZCO NP Jul 19, 2018 15:03
--- NOTE | 2018-07-19 16:20 | CONS ---
Date/Time of Note Date/Time of Note DATE: 07/19/18 TIME: 16:15 Assessment/Plan Assessment/Plan Hospital Course 1. Dyspnea and subjective fever most likely pneumonia as opposed to congestive heart failure: Patient with normal ejection fracture and no significant elevation of PA pressure in the echo. His pro-BNP is also not significantly elevated either. 2. Rule out pneumonia 3. Hypertension 4. R/O dyslipidemia Recommendations: I will stop IV lasix and place on po lasix starting tomorrow abx as per IM Pulm consult with Dr Mahajan group I will order CT chest to further evaluate. cont BP control tele monitoring for now Thank you for his referral. We will continue to follow along with you LAURIE MCBRIDE MD [facility] Result Diagram: 07/19/180 07/19/180 Results 24hrs Laboratory Tests Test 07/19/18 04:50 07/19/18 15:18 White Blood Count 7.2 Red Blood Count 4.76 Hemoglobin 14.9 Hematocrit 45.7 Mean Corpuscular Volume 96.0 Mean Corpuscular Hemoglobin 31.3 Mean Corpuscular Hemoglobin Concent 32.6 Red Cell Distribution Width 12.8 Platelet Count 160 Mean Platelet Volume 10.1 Immature Granulocytes % 0.300 Neutrophils % 66.2 Lymphocytes % 18.3 Monocytes % 11.3 H Eosinophils % 3.5 Basophils % 0.4 Nucleated Red Blood Cells % 0.0 Immature Granulocytes # 0.020 Neutrophils # 4.8 Lymphocytes # 1.3 Monocytes # 0.8 Eosinophils # 0.3 Basophils # 0.0 Nucleated Red Blood Cells # 0.0 Sodium Level 142 Potassium Level 4.2 Chloride Level 97 Carbon Dioxide Level 37 H Anion Gap 8 Blood Urea Nitrogen 26 H Creatinine 0.99 Est Glomerular Filtrat Rate mL/min Glucose Level 100 Calcium Level 8.9 Phosphorus Level 4.7 Magnesium Level 2.0 B-Type Natriuretic Peptide 154 Hemoglobin A1c 5.1 Triglycerides Level 140 Cholesterol Level 156 LDL Cholesterol, Calculated 86 HDL Cholesterol 42 Cholesterol/HDL Ratio 3.7 Consultation Date/Type/Reason Admit Date/Time Jul 17, 2018 at 20:13 Date of Consultation: Jul 19, 2018 Type of Consult CV Reason for Consultation CHF Requesting Provider: NICK VERDUZCO NP Hx of Present Illness Interventional cardiology consultation note Chief complaint: FEVER, SOB COUGH Nasal congestion weakness Reason for consult: Rule out CHF History of present illness: Thank you for this referral. History was obtained from the patient through sql database developer, and review of the chart discussion physician and staff. This is a pleasant 77-year-old [place] gentleman with history of hypertension who was admitted to the emergency room with above chief complaints. Patient is a poor historian. Stated he has felt past 3 days cough and shortness of breath. He felt his head was hot and felt like he was having a fever. He also complains of weakness. His blood pressure was elevated on admission which has been controlled well now. His chest x-ray has shown pulmonary infiltrate possible congestive heart failure the patient has been treated to be congestive heart failure with IV Lasix. Continues to complain of weakness still He denies any lower extremity edema to me denies any PND orthopnea to me. He denies any chest pain or pressure to me. Allergies: No known drug allergies Medications were reviewed as per medical reconciliation sheet Family history: No history of early coronary artery disease Social history: Has quit smoking many years ago. Past medical history: Hypertension, ex-smoker Review of system: Patient denies all others except for above-mentioned Past Medical History Medications Current Medications IV Flush (NS 3 ml) 3 ml PER PROTOCOL IV ; Start 07/18/18 at 02:00 Ondansetron HCl (Zofran Inj) 4 mg Q6H PRN IV NAUSEA AND/OR VOMITING; Start 07/18/18 at 02:00 Acetaminophen (Tylenol Tab) 650 mg Q6H PRN PO PAIN LEVEL 1-3 OR FEVER; Start 07/18/18 at 02:00 Acetaminophen/ Hydrocodone Bitart ([place] (5/325)) 1 tab Q6H PRN PO PAIN LEVEL 4-6; Start 07/18/18 at 02:00 Heparin Sodium (Porcine) (Heparin (5000 Units/1ml)) 5,000 unit Q12 SC Last administered on 07/19/18at 08:24; Admin Dose 5,000 UNIT; Start 07/18/18 at 09:00 Albuterol/ Ipratropium (Duoneb) 3 ml Q2H RESP THERAPY PRN HHN SHORTNESS OF BREATH; Start 07/18/18 at 02:00 Aspirin (Halfprin) 81 mg DAILY PO Last administered on 07/19/18at 08:15; Admin Dose 81 MG; Start 07/18/18 at 09:00 Atorvastatin Calcium (Lipitor) 10 mg QHS PO Last administered on 07/18/18 21:51; Admin Dose 10 MG; Start 07/18/18 at 21:00 Cilostazol (Pletal) 50 mg DAILY PO Last administered on 07/19/18 08:16; Admin Dose 50 MG; Start 07/18/18 at 09:00 Docusate Sodium (Colace) 250 mg BID PO Last administered on 07/19/18 08:16; Admin Dose 250 MG; Start 07/18/18 at 09:00 Tamsulosin HCl (Flomax) 0.4 mg DAILY PO Last administered on 07/19/18 08:15; Admin Dose 0.4 MG; Start 07/18/18 at 09:00 Levofloxacin/ Dextrose 100 ml @ 100 mls/hr DAILY IVPB Last administered on 07/19/18 08:17; Admin Dose 100 MLS/HR; Start 07/18/18 at 09:00 Losartan Potassium (Cozaar) 100 mg DAILY PO Last administered on 07/19/18 08:16; Admin Dose 100 MG; Start 07/18/18 at 09:00 Hydrochlorothiazide (Hydrochlorothiazide) 12.5 mg DAILY PO Last administered on 07/19/18 08:16; Admin Dose 12.5 MG; Start 07/18/18 at 09:00 Amlodipine Besylate (Norvasc) 5 mg DAILY PO Last administered on 07/19/18 08:16; Admin Dose 5 MG; Start 07/18/18 at 09:00 Polyethylene Glycol (Miralax) 17 gm DAILY PRN PO CONSTIPATION Last administered on 07/19/18 06:07; Admin Dose 17 GM; Start 07/18/18 at 22:00 Albuterol/ Ipratropium (Duoneb) 3 ml Q6HWA RESP THERAPY HHN ; Start 07/19/18 at 20:00; Status UNV Furosemide (Lasix) 20 mg DAILY PO ; Start 07/20/18 at 09:00; Status UNV Allergies: Coded Allergies: No Known Allergy (Unverified , 07/28/17) Social History Smoking Status: Never smoker Exam/Review of Systems Vital Signs Vitals Vital Signs Date Temp Pulse Resp B/P (MAP) Pulse Ox O2 O2 Flow FiO2 Time Delivery Rate 07/19/18 98.2 100 19 100/55 90 15:08 (70) 07/19/18 Nasal 2.0 13:06 Cannula Intake and Output 07/18/18 07/18/18 07/19/18 1515:00 23:00 07:00 IntakeIntake Total 100 ml 450 ml 400 ml OutputOutput Total 5 ml BalanceBalance 100 ml 445 ml 400 ml Exam General: no acute distress HEENT: NC/AT. pupils are equal. round. NECK: NO JVD. no stridor. CV: RRR. systolic murmur; no gallop or rubs. PULM: no wheezing or rhonchi. GI: SOFT, NT, ND, no rebound or guarding Extremity: trace B/L LE edema. no clubbing. neuro: awake and alert, OX3. Psych: calm and pleasant rectal: deferred : normal EKG was personally reviewed which shows: Normal sinus rhythm. Low voltage. Incomplete right bundle branch block also Echocardiogram personally reviewed which shows: Normal left ventricular systolic function. Overall, normal left ventricular systolic function. Not all segments visualized. Normal left ventricular cavity size. Moderate concentric left ventricular hypertrophy. Ejection fraction is visually estimated at 55 %. Tissue Doppler/Mitral Doppler indices are consistent with impaired relaxation (Stage I diastolic dysfunction). There is mild enlargement of left atrium. Normal appearance and function of the mitral valve with trace physiologic regurgitation. No hemodynamically significant aortic stenosis by doppler. Aortic cusps appear mildly calcified. Trace to mild aortic valve regurgitation. Normal appearance of the tricuspid valve. Unable to obtain RVSP due to minimal presence of tricuspid regurgitation Chest x-ray was personally reviewed which per radiology report also shows: Mildly increased interstitial edema suggesting cardiopulmonary congestion. Possibly loculated small left pleural effusion is unchanged. No pneumothorax. Cardiomegaly unchanged. Vascular calcifications of the aorta are present compatible with atherosclerosis. Medications Medications Current Medications IV Flush (NS 3 ml) 3 ml PER PROTOCOL IV ; Start 07/18/18 at 02:00 Ondansetron HCl (Zofran Inj) 4 mg Q6H PRN IV NAUSEA AND/OR VOMITING; Start 07/18/18 at 02:00 Acetaminophen (Tylenol Tab) 650 mg Q6H PRN PO PAIN LEVEL 1-3 OR FEVER; Start 07/18/18 at 02:00 Acetaminophen/ Hydrocodone Bitart ([place] (5/325)) 1 tab Q6H PRN PO PAIN LEVEL 4-6; Start 07/18/18 at 02:00 Heparin Sodium (Porcine) (Heparin (5000 Units/1ml)) 5,000 unit Q12 SC Last administered on 07/19/18 08:24; Admin Dose 5,000 UNIT; Start 07/18/18 at 09:00 Albuterol/ Ipratropium (Duoneb) 3 ml Q2H RESP THERAPY PRN HHN SHORTNESS OF BREATH; Start 07/18/18 at 02:00 Aspirin (Halfprin) 81 mg DAILY PO Last administered on 07/19/18 08:15; Admin Dose 81 MG; Start 07/18/18 at 09:00 Atorvastatin Calcium (Lipitor) 10 mg QHS PO Last administered on 07/18/18 21: 51; Admin Dose 10 MG; Start 07/18/18 at 21:00 Cilostazol (Pletal) 50 mg DAILY PO Last administered on 07/19/18 08:16; Admin Dose 50 MG; Start 07/18/18 at 09:00 Docusate Sodium (Colace) 250 mg BID PO Last administered on 07/19/18 08:16; Admin Dose 250 MG; Start 07/18/18 at 09:00 Tamsulosin HCl (Flomax) 0.4 mg DAILY PO Last administered on 07/19/18 08:15; Admin Dose 0.4 MG; Start 07/18/18 at 09:00 Levofloxacin/ Dextrose 100 ml @ 100 mls/hr DAILY IVPB Last administered on 07/19/18 08:17; Admin Dose 100 MLS/HR; Start 07/18/18 at 09:00 Losartan Potassium (Cozaar) 100 mg DAILY PO Last administered on 07/19/18 08:16; Admin Dose 100 MG; Start 07/18/18 at 09:00 Hydrochlorothiazide (Hydrochlorothiazide) 12.5 mg DAILY PO Last administered on 07/19/18 08:16; Admin Dose 12.5 MG; Start 07/18/18 at 09:00 Amlodipine Besylate (Norvasc) 5 mg DAILY PO Last administered on 07/19/18 08:16; Admin Dose 5 MG; Start 07/18/18 at 09:00 Polyethylene Glycol (Miralax) 17 gm DAILY PRN PO CONSTIPATION Last administered on 1/8/19at 06:07; Admin Dose 17 GM; Start 07/18/18 at 22:00 Albuterol/ Ipratropium (Duoneb) 3 ml Q6HWA RESP THERAPY HHN ; Start 07/19/18 at 20:00; Status UNV Furosemide (Lasix) 20 mg DAILY PO ; Start 07/20/18 at 09:00; Status UNV LAURIE MCBRIDE MD Jul 19, 2018 16:20
[2018-07-19] MEDS ORDERED: IOHEXOL 100 ML ONE (17:45)
[2018-07-19] MEDS ORDERED: SOD CHLORIDE 0.9% 100 ML ONE (17:45)
[2018-07-19] MEDS ORDERED: FUROSEMIDE 40 MG INJ IV SCH (18:00)
[2018-07-19] MEDS: ALBUTEROL/IPRATROPIUM (NEB) 3 ML AMP HHN SCH (21:30)
[2018-07-19] MEDS: ATORVASTATIN 10 MG TAB PO SCH (21:44)
[2018-07-20] VITALS (10 sets, daily range): BP systolic 112–138; BP diastolic 58–68; PULSE 79–114; RESP 18–19
[2018-07-20] MEDS: LEVOFLOXACIN 500MG/D5W (PMX) 100 ML IVPB SCH (08:36)
[2018-07-20] MEDS: ASPIRIN (EC) 81 MG TAB PO SCH (08:38)
[2018-07-20] MEDS: CILOSTAZOL 100 MG TAB PO SCH (08:39)
[2018-07-20] MEDS: LOSARTAN 50 MG TAB PO SCH (08:45)
[2018-07-20] MEDS: HYDROCHLOROTHIAZIDE 12.5 MG CAP PO SCH (08:46)
--- NOTE | 2018-07-20 08:50 | CONS ---
Date/Time of Note Date/Time of Note DATE: 07/20/18 TIME: 08:46 Consult Date/Type/Reason Admit Date/Time Jul 17, 2018 at 20:13 Initial Consult Date 07/19/18 Requesting Provider: NICK VERDUZCO NP Subjective cardiology follow up note: S; D/W staff and tele was reviewed. pt remains in NSR NO chest pain orpressure less sob and cough. no PND orthpnea O: General: no acute distress HEENT: NC/AT. pupils are equal. round. NECK: NO JVD. no stridor. CV: RRR. systolic murmur; no gallop or rubs. PULM: no wheezing or rhonchi. GI: SOFT, NT, ND, no rebound or guarding Extremity: trace B/L LE edema. no clubbing. neuro: awake and alert, OX3. Psych: calm and pleasant rectal: deferred : normal EKG was personally reviewed which shows: Normal sinus rhythm. Low voltage. Incomplete right bundle branch block also Echocardiogram personally reviewed which shows: Normal left ventricular systolic function. Overall, normal left ventricular systolic function. Not all segments visualized. Normal left ventricular cavity size. Moderate concentric left ventricular hypertrophy. Ejection fraction is visually estimated at 55 %. Tissue Doppler/Mitral Doppler indices are consistent with impaired relaxation (Stage I diastolic dysfunction). There is mild enlargement of left atrium. Normal appearance and function of the mitral valve with trace physiologic regurgitation. No hemodynamically significant aortic stenosis by doppler. Aortic cusps appear mildly calcified. Trace to mild aortic valve regurgitation. Normal appearance of the tricuspid valve. Unable to obtain RVSP due to minimal presence of tricuspid regurgitation Chest x-ray was personally reviewed which per radiology report also shows: Mildly increased interstitial edema suggesting cardiopulmonary congestion. Possibly loculated small left pleural effusion is unchanged. No pneumothorax. Cardiomegaly unchanged. Vascular calcifications of the aorta are present compatible with atherosclerosis. CTPA 07/19/18" No evidence of pulmonary thromboembolic disease to the proximal segmental arterial level. Patchy ground-glass opacification / consolidation in the right greater than left lower lobes, suspicious for pneumonia. Dilated main renal artery, correlate for pulmonary arterial hypertension. Objective Vital Signs Date Temp Pulse Resp B/P (MAP) Pulse Ox O2 O2 Flow FiO2 Time Delivery Rate 07/20/18 98.5 103 18 112/58 93 Nasal 07:15 (76) Cannula 07/20/18 2.0 02:54 07/19/18 27 22:15 Intake and Output 07/19/18 07/19/18 07/20/18 1515:00 23:00 07:00 IntakeIntake Total 100 ml 600 ml 700 ml OutputOutput Total 3 ml BalanceBalance 100 ml 597 ml 700 ml Results/Medications Result Diagram: 07/20/18 0553 07/20/18 0553 Results 24 hrs Laboratory Tests Test 07/19/18 15:15 07/19/18 15:18 07/20/18 05:53 Blood Gas Specimen Source Blood arterial Arterial Blood Date Drawn 07/19/2018 4:00:30 PM Arterial Blood pH 7.389 (Temp corrected) Arterial Blood pCO2 55.3 H (Temp correct) Arterial Blood pO2 57.3 L (Temp corrected) Arterial Blood HCO3 32.6 H Arterial Blood Base Excess 5.8 H Arterial Blood 86.9 L Oxygen Saturation Clement[place] Test ACCEPTAB Arterial Blood Gas Right Radial Puncture Site Arterial 1.3 Blood Carboxyhemoglobin Arterial Blood Methemoglobin 0.2 Blood Gas A-a O2 Differential 26.2 H Oxyhemoglobin Percent 85.6 L Blood Gas Temperature 37.0 Blood Gas Modality ROOM AIR FiO2 21.0 Blood Gas Notified Whom AT Blood Gas Notified Time 07/19/2018 4:26:43 PM Hemoglobin A1c 5.1 Triglycerides Level 140 Cholesterol Level 156 LDL Cholesterol, Calculated 86 HDL Cholesterol 42 Cholesterol/HDL Ratio 3.7 White Blood Count 7.1 Red Blood Count 4.84 Hemoglobin 15.0 Hematocrit 46.9 Mean Corpuscular Volume 96.9 Mean Corpuscular Hemoglobin 31.0 Mean Corpuscular 32.0 Hemoglobin Concent Red Cell Distribution Width 12.7 Platelet Count 178 Mean Platelet Volume 9.9 Immature Granulocytes % 0.300 Neutrophils % 69.4 Lymphocytes % 16.4 Monocytes % 10.1 Eosinophils % 3.1 Basophils % 0.7 Nucleated Red Blood Cells % 0.0 Immature Granulocytes # 0.020 Neutrophils # 4.9 Lymphocytes # 1.2 Monocytes # 0.7 Eosinophils # 0.2 Basophils # 0.1 Nucleated Red Blood Cells # 0.0 Sodium Level 142 Potassium Level 4.3 Chloride Level 97 Carbon Dioxide Level 36 H Anion Gap 9 Blood Urea Nitrogen 30 H Creatinine 1.02 Est Glomerular Filtrat Rate mL/min Glucose Level 124 Calcium Level 9.0 Phosphorus Level 4.5 Magnesium Level 2.0 Total Bilirubin 0.5 Direct Bilirubin 0.00 Indirect Bilirubin 0.5 Aspartate Amino 22 Transf (AST/SGOT) Alanine 16 Aminotransferase (ALT/SGPT) Alkaline Phosphatase 45 B-Type Natriuretic Peptide 72 Total Protein 7.2 Albumin 3.8 Globulin 3.40 H Albumin/Globulin Ratio 1.11 Medications Current Medications IV Flush (NS 3 ml) 3 ml PER PROTOCOL IV ; Start 07/18/18 at 02:00 Ondansetron HCl (Zofran Inj) 4 mg Q6H PRN IV NAUSEA AND/OR VOMITING; Start 07/18/18 at 02:00 Acetaminophen (Tylenol Tab) 650 mg Q6H PRN PO PAIN LEVEL 1-3 OR FEVER; Start at 02:00 Acetaminophen/ Hydrocodone Bitart ([place] (5/325)) 1 tab Q6H PRN PO PAIN LEVEL 4-6; Start 07/18/18 at 02:00 Heparin Sodium (Porcine) (Heparin (5000 Units/1ml)) 5,000 unit Q12 SC Last a dministered on 07/19/18 21:50; Admin Dose 5,000 UNIT; Start 07/18/18 at 09:00 Albuterol/ Ipratropium (Duoneb) 3 ml Q2H RESP THERAPY PRN HHN SHORTNESS OF BREATH; Start 07/18/18 at 02:00 Aspirin (Halfprin) 81 mg DAILY PO Last administered on 07/19/18 08:15; Admin Dose 81 MG; Start 07/18/18 at 09:00 Atorvastatin Calcium (Lipitor) 10 mg QHS PO Last administered on 07/19/18 21:44; Admin Dose 10 MG; Start 07/18/18 at 21:00 Cilostazol (Pletal) 50 mg DAILY PO Last administered on 07/19/18 08:16; Admin D ose 50 MG; Start 07/18/18 at 09:00 Docusate Sodium (Colace) 250 mg BID PO Last administered on 07/19/18 21:44; Admin Dose 250 MG; Start 07/18/18 at 09:00 Tamsulosin HCl (Flomax) 0.4 mg DAILY PO Last administered on 07/19/18 08:15; Admin Dose 0.4 MG; Start 07/18/18 at 09:00 Levofloxacin/ Dextrose 100 ml @ 100 mls/hr DAILY IVPB Last administered on 07/19/18 08:17; Admin Dose 100 MLS/HR; Start 07/18/18 at 09:00 Losartan Potassium (Cozaar) 100 mg DAILY PO Last administered on 07/19/18 08:16; Admin Dose 100 MG; Start 07/18/18 at 09:00 Hydrochlorothiazide (Hydrochlorothiazide) 12.5 mg DAILY PO Last administered on 07/19/18 08:16; Admin Dose 12.5 MG; Start 07/18/18 at 09:00 Amlodipine Besylate (Norvasc) 5 mg DAILY PO Last administered on 07/19/18 08:16; Admin Dose 5 MG; Start 07/18/18 at 09:00 Polyethylene Glycol (Miralax) 17 gm DAILY PRN PO CONSTIPATION Last administered on 07/19/18 06:07; Admin Dose 17 GM; Start 07/18/18 at 22:00 Albuterol/ Ipratropium (Duoneb) 3 ml Q6HWA RESP THERAPY HHN ; Start 07/19/18 at 20:00 Furosemide (Lasix) 20 mg DAILY PO ; Start 07/20/18 at 09:00 Assessment/Plan Chief Complaint/Hosp Course 1. Dyspnea and subjective fever most likely pneumonia as opposed to congestive heart failure: Patient with normal ejection fracture and no significant elevation of PA pressure in the echo. His pro-BNP is also not significantly elevated either. 2. pneumonia 3. Hypertension 4. R/O dyslipidemia Recommendations: I will stop lasix abx as per IM Pulm consult with Dr Mahajan group dec norvasc to avoid hypotension. cont other BP med tele monitoring for now Thank you for his referral. We will continue to follow along with you LAURIE MCBRIDE MD MERGED WITH [facility] LAURIE MCBRIDE MD Jul 20, 2018 08:50
[2018-07-20] MEDS: ALBUTEROL/IPRATROPIUM (NEB) 3 ML AMP HHN SCH ×3 (08:53→22:11)
[2018-07-20] MEDS: HEPARIN 5,000 UNIT/1 ML VIAL SC SCH ×2 (08:56→21:48)
[2018-07-20] MEDS: TAMSULOSIN (SR) 0.4 MG CAP PO SCH (09:00)
[2018-07-20] MEDS ORDERED: FUROSEMIDE 20 MG TAB PO SCH (09:00)
[2018-07-20] MEDS: DOCUSATE SODIUM 250 MG CAP PO SCH ×2 (09:00→21:52)
[2018-07-20] MEDS: AMLODIPINE 2.5 MG TAB PO SCH (09:00)
[2018-07-20] MEDS: AMLODIPINE 5 MG TAB PO SCH (09:00)
--- NOTE | 2018-07-20 11:04 | CONS ---
Date/Time of Note Date/Time of Note DATE: 07/20/18 TIME: 11:00 Assessment/Plan Assessment/Plan Assessment/Plan Chest x-ray was reviewed which is showing interstitial lung disease. CT chest also was reviewed which is showing similar findings. Assessment recommendations; 1. Patient admitted with acute bronchitis currently on appropriate treatment regimen. 2. Likely chronic type II respiratory failure. 3. Likely underlying sleep apnea. 4. Interstitial lung disease of unknown etiology. Possibly related to occupat ion. 5. History of hypertension, hyperlipidemia and BPH. 6. Parkinson's disease. Continue current supportive care. Add Solu-Medrol 40 mg every 8 hours. Result Diagram: 07/20/18 0553 07/20/18 0553 Results 24hrs Laboratory Tests Test 07/19/18 15:15 07/19/18 15:18 07/20/18 05:53 Blood Gas Specimen Source Blood arterial Arterial Blood Date Drawn 07/19/2018 4:00:30 PM Arterial Blood pH 7.389 (Temp corrected) Arterial Blood pCO2 55.3 H (Temp correct) Arterial Blood pO2 57.3 L (Temp corrected) Arterial Blood HCO3 32.6 H Arterial Blood Base Excess 5.8 H Arterial Blood 86.9 L Oxygen Saturation [place] Test ACCEPTAB Arterial Blood Gas Right Radial Puncture Site Arterial 1.3 Blood Carboxyhemoglobin Arterial Blood Methemoglobin 0.2 Blood Gas A-a O2 Differential 26.2 H Oxyhemoglobin Percent 85.6 L Blood Gas Temperature 37.0 Blood Gas Modality ROOM AIR FiO2 21.0 Blood Gas Notified Whom AT Blood Gas Notified Time 07/19/2018 4:26:43 PM Hemoglobin A1c 5.1 Triglycerides Level 140 Cholesterol Level 156 LDL Cholesterol, Calculated 86 HDL Cholesterol 42 Cholesterol/HDL Ratio 3.7 White Blood Count 7.1 Red Blood Count 4.84 Hemoglobin 15.0 Hematocrit 46.9 Mean Corpuscular Volume 96.9 Mean Corpuscular Hemoglobin 31.0 Mean Corpuscular 32.0 Hemoglobin Concent Red Cell Distribution Width 12.7 Platelet Count 178 Mean Platelet Volume 9.9 Immature Granulocytes % 0.300 Neutrophils % 69.4 Lymphocytes % 16.4 Monocytes % 10.1 Eosinophils % 3.1 Basophils % 0.7 Nucleated Red Blood Cells % 0.0 Immature Granulocytes # 0.020 Neutrophils # 4.9 Lymphocytes # 1.2 Monocytes # 0.7 Eosinophils # 0.2 Basophils # 0.1 Nucleated Red Blood Cells # 0.0 Sodium Level 142 Potassium Level 4.3 Chloride Level 97 Carbon Dioxide Level 36 H Anion Gap 9 Blood Urea Nitrogen 30 H Creatinine 1.02 Est Glomerular Filtrat Rate mL/min Glucose Level 124 Calcium Level 9.0 Phosphorus Level 4.5 Magnesium Level 2.0 Total Bilirubin 0.5 Direct Bilirubin 0.00 Indirect Bilirubin 0.5 Aspartate Amino 22 Transf (AST/SGOT) Alanine 16 Aminotransferase (ALT/SGPT) Alkaline Phosphatase 45 B-Type Natriuretic Peptide 72 Total Protein 7.2 Albumin 3.8 Globulin 3.40 H Albumin/Globulin Ratio 1.11 Consultation Date/Type/Reason Admit Date/Time Jul 17, 2018 at 20:13 Date of Consultation: Jul 20, 2018 Type of Consult Pulmonary History of presenting illness; patient is a very pleasant 77-year-old male who came into the hospital with a few days history of chest congestion, coughing, yellow sputum production as well as wheezing. Patient denies any high fever, chills any body aches or myalgias. According to him he was doing fine until symptoms started 2 days ago. Past medical history; 1. Possibly underlying interstitial lung disease. 2. Possible underlying Sleep apnea. 3. Hyperlipidemia. 4. Hypertension. 5. Parkinson's disease. 6. BPH. Medications; reviewed. Allergies; none. Social history; quit smoking 20 years ago. Family history; patient is , has 3 children. 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 Review of systems; denies any headache, seizures. Any sinus symptoms. Complains of coughing chest congestion and wheezing as outlined above. Denies any abdominal pain, nausea vomiting. Any edema. Any orthopnea. Any weight loss. Complains of mild chronic dyspnea on exertion. Complains of snoring and excessive daytime sleepiness. Denies any melena hematochezia or any urinary symptoms. General exam; elderly male, awake alert, currently in no distress. Past Medical History Medications Current Medications IV Flush (NS 3 ml) 3 ml PER PROTOCOL IV ; Start 07/18/18 at 02:00 Ondansetron HCl (Zofran Inj) 4 mg Q6H PRN IV NAUSEA AND/OR VOMITING; Start 07/18/18 at 02:00 Acetaminophen (Tylenol Tab) 650 mg Q6H PRN PO PAIN LEVEL 1-3 OR FEVER; Start 07/18/18 at 02:00 Acetaminophen/ Hydrocodone Bitart ([place] (5/325)) 1 tab Q6H PRN PO PAIN LEVEL 4-6; Start 07/18/18 at 02:00 Heparin Sodium (Porcine) (Heparin (5000 Units/1ml)) 5,000 unit Q12 SC Last administered on 07/20/18 08:56; Admin Dose 5,000 UNIT; Start 07/18/18 at 09:00 Albuterol/ Ipratropium (Duoneb) 3 ml Q2H RESP THERAPY PRN HHN SHORTNESS OF BREATH; Start 07/18/18 at 02:00 Aspirin (Halfprin) 81 mg DAILY PO Last administered on 07/20/18 08:38; Admin Dose 81 MG; Start 07/18/18 at 09:00 Atorvastatin Calcium (Lipitor) 10 mg QHS PO Last administered on 07/19/18 21:44; Admin Dose 10 MG; Start 07/18/18 at 21:00 Cilostazol (Pletal) 50 mg DAILY PO Last administered on 07/20/18 08:39; Admin Dose 50 MG; Start 07/18/18 at 09:00 Docusate Sodium (Colace) 250 mg BID PO Last administered on 07/19/18 21:44; Admin Dose 250 MG; Start 07/18/18 at 09:00 Tamsulosin HCl (Flomax) 0.4 mg DAILY PO Last administered on 07/19/18 08:15; Admin Dose 0.4 MG; Start 07/18/18 at 09:00 Levofloxacin/ Dextrose 100 ml @ 100 mls/hr DAILY IVPB Last administered on 07/20/18 08:36; Admin Dose 100 MLS/HR; Start 07/18/18 at 09:00 Losartan Potassium (Cozaar) 100 mg DAILY PO Last administered on 07/20/18 08:45; Admin Dose 100 MG; Start 07/18/18 at 09:00 Hydrochlorothiazide (Hydrochlorothiazide) 12.5 mg DAILY PO Last administered on 07/20/18 08:46; Admin Dose 12.5 MG; Start 07/18/18 at 09:00 Polyethylene Glycol (Miralax) 17 gm DAILY PRN PO CONSTIPATION Last administered on 07/19/18 06:07; Admin Dose 17 GM; Start 07/18/18 at 22:00 Albuterol/ Ipratropium (Duoneb) 3 ml Q6HWA RESP THERAPY HHN Last administered on 07/20/18at 08:53; Admin Dose 3 ML; Start 07/19/18 at 20:00 Amlodipine Besylate (Norvasc) 2.5 mg DAILY PO ; Start 07/20/18 at 09:00 Allergies: Coded Allergies: No Known Allergy (Unverified , 07/28/17) Social History Smoking Status: Never smoker Exam/Review of Systems Vital Signs Vitals Vital Signs Date Temp Pulse Resp B/P (MAP) Pulse Ox O2 O2 Flow FiO2 Time Delivery Rate 07/20/18 96 2.0 08:53 07/20/18 97 18 28 08:53 07/20/18 98.5 112/58 Nasal 07:15 (76) Cannula Intake and Output 07/19/18 07/19/18 07/20/18 1515:00 23:00 07:00 IntakeIntake Total 100 ml 600 ml 700 ml OutputOutput Total 3 ml BalanceBalance 100 ml 597 ml 700 ml Exam HEENT exam; supple neck, no JVD. No lymphadenopathy. Midline trachea. No thyromegaly. Patient is edentulous and wears dentures. Chest exam; diminished breath sounds bilaterally. S1-S2 audible, no murmurs. Regular rhythm. Abdomen exam; soft, protuberant. Nontender. Bowel sounds audible. Or ganomegaly difficult to assess. Extremity exam; no peripheral edema or clubbing. 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 Medications Medications Current Medications IV Flush (NS 3 ml) 3 ml PER PROTOCOL IV ; Start 07/18/18 at 02:00 Ondansetron HCl (Zofran Inj) 4 mg Q6H PRN IV NAUSEA AND/OR VOMITING; Start 07/18/18 at 02:00 Acetaminophen (Tylenol Tab) 650 mg Q6H PRN PO PAIN LEVEL 1-3 OR FEVER; Start 07/18/18 at 02:00 Acetaminophen/ Hydrocodone Bitart ([place] (5/325)) 1 tab Q6H PRN PO PAIN LEVEL 4-6; Start 07/18/18 at 02:00 Heparin Sodium (Porcine) (Heparin (5000 Units/1ml)) 5,000 unit Q12 SC Last administered on 07/20/18at 08:56; Admin Dose 5,000 UNIT; Start 07/18/18 at 09:00 Albuterol/ Ipratropium (Duoneb) 3 ml Q2H RESP THERAPY PRN HHN SHORTNESS OF B REATH; Start 07/18/18 at 02:00 Aspirin (Halfprin) 81 mg DAILY PO Last administered on 07/20/18 08:38; Admin Dose 81 MG; Start 07/18/18 at 09:00 Atorvastatin Calcium (Lipitor) 10 mg QHS PO Last administered on 07/19/18 21:44; Admin Dose 10 MG; Start 07/18/18 at 21:00 Cilostazol (Pletal) 50 mg DAILY PO Last administered on 07/20/18 08:39; Admin Dose 50 MG; Start 07/18/18 at 09:00 Docusate Sodium (Colace) 250 mg BID PO Last administered on 07/19/18 21:44; Admin Dose 250 MG; Start 07/18/18 at 09:00 Tamsulosin HCl (Flomax) 0.4 mg DAILY PO Last administered on 07/19/18 08:15; Admin Dose 0.4 MG; Start 07/18/18 at 09:00 Levofloxacin/ Dextrose 100 ml @ 100 mls/hr DAILY IVPB Last administered on 07/20/18 08:36; Admin Dose 100 MLS/HR; Start 07/18/18 at 09:00 Losartan Potassium (Cozaar) 100 mg DAILY PO Last administered on 07/20/18 08:45; Admin Dose 100 MG; Start 07/18/18 at 09:00 Hydrochlorothiazide (Hydrochlorothiazide) 12.5 mg DAILY PO Last administered on 07/20/18 08:46; Admin Dose 12.5 MG; Start 07/18/18 at 09:00 Polyethylene Glycol (Miralax) 17 gm DAILY PRN PO CONSTIPATION Last administered on 07/19/18 06:07; Admin Dose 17 GM; Start 07/18/18 at 22:00 Albuterol/ Ipratropium (Duoneb) 3 ml Q6HWA RESP THERAPY HHN Last administered on 07/20/18 08:53; Admin Dose 3 ML; Start 07/19/18 at 20:00 Amlodipine Besylate (Norvasc) 2.5 mg DAILY PO ; Start 07/20/18 at 09:00 BARBARA CHOUDHURY Jul 20, 2018 11:04
--- NOTE | 2018-07-20 14:43 | PN ---
Date/Time of Note Date/Time of Note DATE: 07/20/18 TIME: 14:42 Assessment/Plan VTE Prophylaxis Risk score (from Nsg)>0 risk: 4 SCD applied (from Nsg): Yes Pharmacological prophylaxis: heparin Lines/Catheters IV Catheter Type (from Nrsg): Peripheral IV Urinary Cath still in place: No Assessment/Plan Hospital Course SUBJECTIVE: Denies any chest pain. Continues to have dyspnea. OBJECTIVE: Physical Exam General: Morbidly obese 77 year-old male sitting in a chair in mild respiratory distress. HEENT: Normocephalic, atraumatic. Eyes: Anicteric sclerae, conjunctivae clear. ENT: Nasal septum midline, oral mucosa moist. Neck supple. Respiratory: Bilaterally diminished breath sounds. Minimal use of accessory muscles of respiration. Cardiovascular: S1, S2 heard. Regular rate and rhythm. Abdomen: Soft, nontender, and nondistended. Bowel sounds positive in all 4 q uadrants. Genitourinary: Deferred. Extremities: No cyanosis, no clubbing. Trace B/L pedal edema. Peripheral pulses palpable. Neurologic: Cranial nerves II through XII grossly intact. The patient is awake, alert, and oriented. Skin: Normal skin turgor. No skin rashes. Labs & Vitals per chart ASSESSMENT & PLAN 77-year-old male with comorbidities including dyslipidemia, hypertension, BPH, and Parkinson's disease who was brought to the emergency room because of shortness of breath, who was found to have evidence of underlying patchy airspace disease in the mid and lower lung zones, who was admitted to inpatient setting for further treatment and evaluation. 1. Acute respiratory failure. -Hypoxic. -Continue inhaled bronchodilators. -Etiology could be secondary to underlying pneumonia along with a component of interstitial lung disease. -Continue supplemental oxygen. -Started on tapering dose of steroids. -Pulmonology following. 2. Essential hypertension. -Continue antihypertensives. 3. BPH. -Continue Flomax. 4. Dyslipidemia. -Continue statins. 5. Parkinson's disease. -Patient stopped taking antiparkinsonian medications. 6. Chronic right foot plantar pain. -On Pletal for it. -Bilateral lower extremity arterial ultrasound showing moderate small vessel is chemia in the right foot with a decreased ankle brachial index in the right to moderate to severe small vessel ischemia in the left foot with decreased ankle brachial index in the left dorsalis pedis artery. 7. Obesity. -BMI more than 41 kg/m. -Will advise weight reduction. 8. Fluids, electrolytes, and nutrition. -Regular diet. 9. DVT prophylaxis -Subcutaneous heparin. 10. Plan. -Continue antimicrobials. -Await clinical improvement. Called the patient's daughter Rachel [phone]. Informed the patient's current status, the clinical management, and discharge planning. The patient was seen in collaboration with Dr. Jorge. Result Diagram: 07/20/18 0553 07/20/18 0553 Results 24hrs Laboratory Tests Test 07/19/18 15:15 07/19/18 15:18 07/20/18 05:53 Blood Gas Specimen Source Blood arterial Arterial Blood Date Drawn 07/19/2018 4:00:30 PM Arterial Blood pH 7.389 (Temp corrected) Arterial Blood pCO2 55.3 H (Temp correct) Arterial Blood pO2 57.3 L (Temp corrected) Arterial Blood HCO3 32.6 H Arterial Blood Base Excess 5.8 H Arterial Blood 86.9 L Oxygen Saturation [place] Test ACCEPTAB Arterial Blood Gas Right Radial Puncture Site Arterial 1.3 Blood Carboxyhemoglobin Arterial Blood Methemoglobin 0.2 Blood Gas A-a O2 Differential 26.2 H Oxyhemoglobin Percent 85.6 L Blood Gas Temperature 37.0 Blood Gas Modality ROOM AIR FiO2 21.0 Blood Gas Notified Whom AT Blood Gas Notified Time 07/19/2018 4:26:43 PM Hemoglobin A1c 5.1 Triglycerides Level 140 Cholesterol Level 156 LDL Cholesterol, Calculated 86 HDL Cholesterol 42 Cholesterol/HDL Ratio 3.7 White Blood Count 7.1 Red Blood Count 4.84 Hemoglobin 15.0 Hematocrit 46.9 Mean Corpuscular Volume 96.9 Mean Corpuscular Hemoglobin 31.0 Mean Corpuscular 32.0 Hemoglobin Concent Red Cell Distribution Width 12.7 Platelet Count 178 Mean Platelet Volume 9.9 Immature Granulocytes % 0.300 Neutrophils % 69.4 Lymphocytes % 16.4 Monocytes % 10.1 Eosinophils % 3.1 Basophils % 0.7 Nucleated Red Blood Cells % 0.0 Immature Granulocytes # 0.020 Neutrophils # 4.9 Lymphocytes # 1.2 Monocytes # 0.7 Eosinophils # 0.2 Basophils # 0.1 Nucleated Red Blood Cells # 0.0 Sodium Level 142 Potassium Level 4.3 Chloride Level 97 Carbon Dioxide Level 36 H Anion Gap 9 Blood Urea Nitrogen 30 H Creatinine 1.02 Est Glomerular Filtrat Rate mL/min Glucose Level 124 Calcium Level 9.0 Phosphorus Level 4.5 Magnesium Level 2.0 Total Bilirubin 0.5 Direct Bilirubin 0.00 Indirect Bilirubin 0.5 Aspartate Amino 22 Transf (AST/SGOT) Alanine 16 Aminotransferase (ALT/SGPT) Alkaline Phosphatase 45 B-Type Natriuretic Peptide 72 Total Protein 7.2 Albumin 3.8 Globulin 3.40 H Albumin/Globulin Ratio 1.11 Exam/Review of Systems Vital Signs Vitals Vital Signs Date Temp Pulse Resp B/P (MAP) Pulse Ox O2 O2 Flow FiO2 Time Delivery Rate 07/20/18 96 16 94 2.0 28 13:56 07/20/18 98.3 137/62 Nasal 11:13 (87) Cannula Intake and Output 07/19/18 07/19/18 07/20/18 1515:00 23:00 07:00 IntakeIntake Total 100 ml 600 ml 700 ml OutputOutput Total 3 ml BalanceBalance 100 ml 597 ml 700 ml Medications Medications Current Medications IV Flush (NS 3 ml) 3 ml PER PROTOCOL IV ; Start 07/18/18 at 02:00 Ondansetron HCl (Zofran Inj) 4 mg Q6H PRN IV NAUSEA AND/OR VOMITING; Start 07/18/18 at 02:00 Acetaminophen (Tylenol Tab) 650 mg Q6H PRN PO PAIN LEVEL 1-3 OR FEVER; Start 07/18/18 at 02:00 Acetaminophen/ Hydrocodone Bitart ([place] (5/325)) 1 tab Q6H PRN PO PAIN LEVEL 4-6; Start 07/18/18 at 02:00 Heparin Sodium (Porcine) (Heparin (5000 Units/1ml)) 5,000 unit Q12 SC Last administered on 07/20/18at 08:56; Admin Dose 5,000 UNIT; Start 07/18/18 at 09:00 Albuterol/ Ipratropium (Duoneb) 3 ml Q2H RESP THERAPY PRN HHN SHORTNESS OF BREATH; Start 07/18/18 at 02:00 Aspirin (Halfprin) 81 mg DAILY PO Last administered on 07/20/18at 08:38; Admin Dose 81 MG; Start 07/18/18 at 09:00 Atorvastatin Calcium (Lipitor) 10 mg QHS PO Last administered on 07/19/18at 21:44; Admin Dose 10 MG; Start 07/18/18 at 21:00 Cilostazol (Pletal) 50 mg DAILY PO Last administered on 07/20/18 08:39; Admin Dose 50 MG; Start 07/18/18 at 09:00 Docusate Sodium (Colace) 250 mg BID PO Last administered on 07/20/18 09:00; Admin Dose 250 MG; Start 07/18/18 at 09:00 Tamsulosin HCl (Flomax) 0.4 mg DAILY PO Last administered on 07/20/18 09:00; Admin Dose 0.4 MG; Start 07/18/18 at 09:00 Losartan Potassium (Cozaar) 100 mg DAILY PO Last administered on 07/20/18 08:45; Admin Dose 100 MG; Start 07/18/18 at 09:00 Hydrochlorothiazide (Hydrochlorothiazide) 12.5 mg DAILY PO Last administered on 07/20/18 08:46; Admin Dose 12.5 MG; Start 07/18/18 at 09:00 Polyethylene Glycol (Miralax) 17 gm DAILY PRN PO CONSTIPATION Last administered on 07/19/18 06:07; Admin Dose 17 GM; Start 07/18/18 at 22:00 Albuterol/ Ipratropium (Duoneb) 3 ml Q6HWA RESP THERAPY HHN Last administered on 07/20/18at 13:56; Admin Dose 3 ML; Start 07/19/18 at 20:00 Amlodipine Besylate (Norvasc) 2.5 mg DAILY PO ; Start 07/20/18 at 09:00 Methylprednisolone Sodium Succinate (Solu-Medrol) 40 mg Q8 IV ; Start 07/20/18 at 14:00 Levofloxacin (Levaquin) 500 mg DAILY@06 PO ; Start 07/21/18 at 06:00 NICK VERDUZCO NP Jul 20, 2018 14:43
[2018-07-20] MEDS: METHYLPREDNISOLONE 40 MG INJ IV SCH ×2 (16:01→21:41)
[2018-07-20] MEDS: FAMOTIDINE 20 MG TAB PO SCH (21:40)
[2018-07-20] MEDS: ATORVASTATIN 10 MG TAB PO SCH (21:41)
[2018-07-21] VITALS (12 sets, daily range): BP systolic 121–151; BP diastolic 57–78; PULSE 84–160; RESP 18–20
[2018-07-21] MEDS: METHYLPREDNISOLONE 40 MG INJ IV SCH ×3 (06:36→21:23)
[2018-07-21] MEDS: LEVOFLOXACIN 500 MG TAB PO SCH (06:36)
[2018-07-21] MEDS: HYDROCHLOROTHIAZIDE 12.5 MG CAP PO SCH (08:33)
[2018-07-21] MEDS: LOSARTAN 50 MG TAB PO SCH (08:34)
[2018-07-21] MEDS: AMLODIPINE 2.5 MG TAB PO SCH (08:35)
[2018-07-21] MEDS: CILOSTAZOL 100 MG TAB PO SCH (08:35)
[2018-07-21] MEDS: DOCUSATE SODIUM 250 MG CAP PO SCH ×2 (08:36→20:51)
[2018-07-21] MEDS: ASPIRIN (EC) 81 MG TAB PO SCH (08:36)
[2018-07-21] MEDS: TAMSULOSIN (SR) 0.4 MG CAP PO SCH (08:36)
[2018-07-21] MEDS: HEPARIN 5,000 UNIT/1 ML VIAL SC SCH ×2 (08:46→21:03)
--- NOTE | 2018-07-21 09:43 | CONS ---
Date/Time of Note Date/Time of Note DATE: 07/21/18 TIME: 09:41 Consult Date/Type/Reason Admit Date/Time Jul 17, 2018 at 20:13 Initial Consult Date 07/19/18 Requesting Provider: NICK VERDUZCO NP Subjective cardiology follow up note: S; D/W staff and tele was reviewed. pt remains in NSR NO chest pain or pressure He is still complaining of cough and shortness of breath worse at nighttime no PND orthpnea O: General: no acute distress HEENT: NC/AT. pupils are equal. round. NECK: NO JVD. no stridor. CV: RRR. systolic murmur; no gallop or rubs. PULM: no wheezing . , Mild rhonchi. GI: SOFT, NT, ND, no rebound or guarding Extremity: trace B/L LE edema. no clubbing. neuro: awake and alert, OX3. Psych: calm and pleasant rectal: deferred : normal EKG was personally reviewed which shows: Normal sinus rhythm. Low voltage. Incomplete right bundle branch block also Echocardiogram personally reviewed which shows: Normal left ventricular systolic function. Overall, normal left ventricular systolic function. Not all segments visualized. Normal left ventricular cavity size. Moderate concentric left ventricular hypertrophy. Ejection fraction is visually estimated at 55 %. Tissue Doppler/Mitral Doppler indices are consistent with impaired relaxation (Stage I diastolic dysfunction). There is mild enlargement of left atrium. Normal appearance and function of the mitral valve with trace physiologic regurgitation. No hemodynamically significant aortic stenosis by doppler. Aortic cusps appear mildly calcified. Trace to mild aortic valve regurgitation. Normal appearance of the tricuspid valve. Unable to obtain RVSP due to minimal presence of tricuspid regurgitation Chest x-ray was personally reviewed which per radiology report also shows: Mildly increased interstitial edema suggesting cardiopulmonary congestion. Possibly loculated small left pleural effusion is unchanged. No pneumothorax. Cardiomegaly unchanged. Vascular calcifications of the aorta are present compatible with atherosclerosis. CTPA 07/19/18" No evidence of pulmonary thromboembolic disease to the proximal segmental arterial level. Patchy ground-glass opacification / consolidation in the right greater than left lower lobes, suspicious for pneumonia. Dilated main renal artery, correlate for pulmonary arterial hypertension. Objective Vital Signs Date Temp Pulse Resp B/P (MAP) Pulse Ox O2 O2 Flow FiO2 Time Delivery Rate 07/21/18 124 09:00 07/21/18 98.4 18 151/73 91 Nasal 07:05 (99) Cannula 07/21/18 2.0 28 05:05 Intake and Output 07/20/18 07/20/18 07/21/18 1515:00 23:00 07:00 IntakeIntake Total 100 ml 880 ml 650 ml BalanceBalance 100 ml 880 ml 650 ml Results/Medications Result Diagram: 07/21/18 0537 07/21/18 0537 Results 24 hrs Laboratory Tests Test 07/21/18 02:40 07/21/18 05:37 Sodium Level 142 142 Potassium Level 4.7 4.8 Chloride Level 102 100 Carbon Dioxide Level 33 H 33 H Anion Gap 7 9 Blood Urea Nitrogen 33 H 31 H Creatinine 0.86 0.75 Est Glomerular Filtrat Rate mL/min Glucose Level 171 147 Calcium Level 9.5 9.3 Magnesium Level 2.0 2.1 Thyroid Stimulating Hormone (TSH) 0.300 L White Blood Count 4.8 # Red Blood Count 4.80 Hemoglobin 15.0 Hematocrit 46.5 Mean Corpuscular Volume 96.9 Mean Corpuscular Hemoglobin 31.3 Mean Corpuscular Hemoglobin Concent 32.3 Red Cell Distribution Width 12.8 Platelet Count 196 Mean Platelet Volume 9.9 Immature Granulocytes % 0.400 Neutrophils % 89.2 H Lymphocytes % 8.3 L Monocytes % 1.9 Eosinophils % 0.0 Basophils % 0.2 Nucleated Red Blood Cells % 0.0 Immature Granulocytes # 0.020 Neutrophils # 4.3 Lymphocytes # 0.4 L Monocytes # 0.1 L Eosinophils # 0.0 Basophils # 0.0 Nucleated Red Blood Cells # 0.0 Phosphorus Level 4.3 Medications Current Medications IV Flush (NS 3 ml) 3 ml PER PROTOCOL IV ; Start 07/18/18 at 02:00 Ondansetron HCl (Zofran Inj) 4 mg Q6H PRN IV NAUSEA AND/OR VOMITING; Start 07/18/18 at 02:00 Acetaminophen (Tylenol Tab) 650 mg Q6H PRN PO PAIN LEVEL 1-3 OR FEVER; Start 07/18/18 at 02:00 Acetaminophen/ Hydrocodone Bitart ([place] (5/325)) 1 tab Q6H PRN PO PAIN LEVEL 4 -6; Start 07/18/18 at 02:00 Heparin Sodium (Porcine) (Heparin (5000 Units/1ml)) 5,000 unit Q12 SC Last administered on 07/21/18 08:46; Admin Dose 5,000 UNIT; Start 07/18/18 at 09:00 Albuterol/ Ipratropium (Duoneb) 3 ml Q2H RESP THERAPY PRN HHN SHORTNESS OF BREATH; Start 07/18/18 at 02:00 Aspirin (Halfprin) 81 mg DAILY PO Last administered on 07/21/18 08:36; Admin Dose 81 MG; Start 07/18/18 at 09:00 Atorvastatin Calcium (Lipitor) 10 mg QHS PO Last administered on 07/20/18 21:41; Admin Dose 10 MG; Start 07/18/18 at 21:00 Cilostazol (Pletal) 50 mg DAILY PO Last administered on 07/21/18 08:35; Admin Dose 50 MG; Start 07/18/18 at 09:00 Docusate Sodium (Colace) 250 mg BID PO Last administered on 07/21/18 08:36; Admin Dose 250 MG; Start 07/18/18 at 09:00 Tamsulosin HCl (Flomax) 0.4 mg DAILY PO Last administered on 07/21/18 08:36; Admin Dose 0.4 MG; Start 07/18/18 at 09:00 Losartan Potassium (Cozaar) 100 mg DAILY PO Last administered on 07/21/18 08:34; Admin Dose 100 MG; Start 07/18/18 at 09:00 Hydrochlorothiazide (Hydrochlorothiazide) 12.5 mg DAILY PO Last administered on 07/21/18 08:33; Admin Dose 12.5 MG; Start 07/18/18 at 09:00 Polyethylene Glycol (Miralax) 17 gm DAILY PRN PO CONSTIPATION Last administered on 07/19/18 06:07; Admin Dose 17 GM; Start 07/18/18 at 22:00 Albuterol/ Ipratropium (Duoneb) 3 ml Q6HWA RESP THERAPY HHN Last administered on 07/20/18 22:11; Admin Dose 3 ML; Start 07/19/18 at 20:00 Amlodipine Besylate (Norvasc) 2.5 mg DAILY PO Last administered on 07/21/18 08:35; Admin Dose 2.5 MG; Start 07/20/18 at 09:00 Methylprednisolone Sodium Succinate (Solu-Medrol) 40 mg Q8 IV Last administered on 07/21/18at 06:36; Admin Dose 40 MG; Start 07/20/18 at 14:00 Levofloxacin (Levaquin) 500 mg DAILY@06 PO Last administered on 07/21/18at 06:36; Admin Dose 500 MG; Start 07/21/18 at 06:00 Famotidine (Pepcid) 20 mg HS PO Last administered on 07/20/18at 21:40; Admin Dose 20 MG; Start 07/20/18 at 21:00 Assessment/Plan Chief Complaint/Hosp Course 1. Dyspnea and subjective fever most likely pneumonia/bronchitis as opposed to congestive heart failure: Patient with normal ejection fracture and no significant elevation of PA pressure in the echo. His pro-BNP is also not significantly elevated either. 2. pneumonia 3. Hypertension 4. R/O dyslipidemia Recommendations: I will follow-up Lasix abx as per IM Follow-up with the pulmonary recommendations Continue Norvasc cont other BP med tele monitoring for now Thank you for his referral. We will continue to follow along with you LAURIE MCBRIDE MD [facility] LAURIE MCBRIDE MD Jul 21, 2018 09:43
[2018-07-21] MEDS: ALBUTEROL/IPRATROPIUM (NEB) 3 ML AMP HHN SCH ×3 (09:44→20:11)
--- NOTE | 2018-07-21 10:54 | CONS ---
Date/Time of Note Date/Time of Note DATE: 07/21/18 TIME: 10:52 Assessment/Plan Assessment/Plan Assessment/Plan Assessment and recommendations; 1. Patient admitted for acute bronchitis with history of underlying COPD with interval improvement. Currently on appropriate treatment regimen. 2. Likely underlying chronic appearing interstitial lung disease. Possibly occupational related. 3. History of hypertension. 4. Parkinson's disease. 5. Likely chronic type II respiratory failure as well as underlying sleep ap elizabeth. Continue current supportive care. Steroid taper in 24 hours. Patient will benefit from sleep study. Result Diagram: 07/21/18 0537 07/21/1837 Results 24hrs Laboratory Tests Test 07/21/18 02:40 07/21/18 05:37 Sodium Level 142 142 Potassium Level 4.7 4.8 Chloride Level 102 100 Carbon Dioxide Level 33 H 33 H Anion Gap 7 9 Blood Urea Nitrogen 33 H 31 H Creatinine 0.86 0.75 Est Glomerular Filtrat Rate mL/min Glucose Level 171 147 Calcium Level 9.5 9.3 Magnesium Level 2.0 2.1 Thyroid Stimulating Hormone (TSH) 0.300 L White Blood Count 4.8 # Red Blood Count 4.80 Hemoglobin 15.0 Hematocrit 46.5 Mean Corpuscular Volume 96.9 Mean Corpuscular Hemoglobin 31.3 Mean Corpuscular Hemoglobin Concent 32.3 Red Cell Distribution Width 12.8 Platelet Count 196 Mean Platelet Volume 9.9 Immature Granulocytes % 0.400 Neutrophils % 89.2 H Lymphocytes % 8.3 L Monocytes % 1.9 Eosinophils % 0.0 Basophils % 0.2 Nucleated Red Blood Cells % 0.0 Immature Granulocytes # 0.020 Neutrophils # 4.3 Lymphocytes # 0.4 L Monocytes # 0.1 L Eosinophils # 0.0 Basophils # 0.0 Nucleated Red Blood Cells # 0.0 Phosphorus Level 4.3 Consultation Date/Type/Reason Admit Date/Time Jul 17, 2018 at 20:13 Initial Consult Date 07/20/18 Type of Consult Pulmonary History of presenting illness; patient is a very pleasant 77-year-old male who came into the hospital with a few days history of chest congestion, coughing, yellow sputum production as well as wheezing. Patient denies any high fever, chills any body aches or myalgias. According to him he was doing fine until symptoms started 2 days ago. Past medical history; 1. Possibly underlying interstitial lung disease. 2. Possible underlying Sleep apnea. 3. Hyperlipidemia. 4. Hypertension. 5. Parkinson's disease. 6. BPH. Medications; reviewed. Allergies; none. Social history; quit smoking 20 years ago. Family history; patient is , has 3 children. 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 Review of systems; denies any headache, seizures. Any sinus symptoms. Complains of coughing chest congestion and wheezing as outlined above. Denies any abdominal pain, nausea vomiting. Any edema. Any orthopnea. Any weight lo ss. Complains of mild chronic dyspnea on exertion. Complains of snoring and excessive daytime sleepiness. Denies any melena hematochezia or any urinary symptoms. General exam; elderly male, awake alert, currently in no distress. Requesting Provider: NICK VERDUZCO NP 24 HR Interval Summary Free Text/Dictation Patient's condition has improved. Reports decreased shortness of breath coughing and wheezing. General exam; elderly male, awake alert, currently in no distress. Laying comfortably in bed. Exam/Review of Systems Vital Signs Vitals Vital Signs Date Temp Pulse Resp B/P (MAP) Pulse Ox O2 O2 Flow FiO2 Time Delivery Rate 07/21/18 101 20 95 2.0 09:46 07/21/18 98.4 151/73 Nasal 07:05 (99) Cannula 07/21/18 28 05:05 Intake and Output 07/20/18 07/20/18 07/21/18 1515:00 23:00 07:00 IntakeIntake Total 100 ml 880 ml 650 ml BalanceBalance 100 ml 880 ml 650 ml Exam HEENT exam; supple neck, no JVD. No lymphadenopathy. Midline trachea. No thyromegaly. Patient is edentulous and wears dentures. Chest exam; diminished but clear breath sounds. No added sounds. S1-S2 audible, no murmurs. Regular rhythm. Abdomen exam; soft, no organomegaly. Bowel sounds audible. Protuberant. Extremity exam; no peripheral edema or clubbing. WOMEN'S ACTIVITIES ADVISER exam; no focal deficit. Medications Medications Current Medications IV Flush (NS 3 ml) 3 ml PER PROTOCOL IV ; Start 07/18/18 at 02:00 Ondansetron HCl (Zofran Inj) 4 mg Q6H PRN IV NAUSEA AND/OR VOMITING; Start 07/18/18 at 02:00 Acetaminophen (Tylenol Tab) 650 mg Q6H PRN PO PAIN LEVEL 1-3 OR FEVER; Start 07/18/18 at 02:00 Acetaminophen/ Hydrocodone Bitart ([place] (5/325)) 1 tab Q6H PRN PO PAIN LEVEL 4-6; Start 07/18/18 at 02:00 Heparin Sodium (Porcine) (Heparin (5000 Units/1ml)) 5,000 unit Q12 SC Last adm inistered on 07/21/18 08:46; Admin Dose 5,000 UNIT; Start 07/18/18 at 09:00 Albuterol/ Ipratropium (Duoneb) 3 ml Q2H RESP THERAPY PRN HHN SHORTNESS OF BREATH; Start 07/18/18 at 02:00 Aspirin (Halfprin) 81 mg DAILY PO Last administered on 07/21/18 08:36; Admin Dose 81 MG; Start 07/18/18 at 09:00 Atorvastatin Calcium (Lipitor) 10 mg QHS PO Last administered on 07/20/18 21:41; Admin Dose 10 MG; Start 07/18/18 at 21:00 Cilostazol (Pletal) 50 mg DAILY PO Last administered on 07/21/18 08:35; Admin Dose 50 MG; Start 07/18/18 at 09:00 Docusate Sodium (Colace) 250 mg BID PO Last administered on 07/21/18 08:36; Admin Dose 250 MG; Start 07/18/18 at 09:00 Tamsulosin HCl (Flomax) 0.4 mg DAILY PO Last administered on 07/21/18 08:36; Admin Dose 0.4 MG; Start 07/18/18 at 09:00 Losartan Potassium (Cozaar) 100 mg DAILY PO Last administered on 07/21/18 08:34; Admin Dose 100 MG; Start 07/18/18 at 09:00 Hydrochlorothiazide (Hydrochlorothiazide) 12.5 mg DAILY PO Last administered on 07/21/18 08:33; Admin Dose 12.5 MG; Start 07/18/18 at 09:00 Polyethylene Glycol (Miralax) 17 gm DAILY PRN PO CONSTIPATION Last administered on 07/19/18 06:07; Admin Dose 17 GM; Start 07/18/18 at 22:00 Albuterol/ Ipratropium (Duoneb) 3 ml Q6HWA RESP THERAPY HHN Last administered on 07/21/18 09:44; Admin Dose 3 ML; Start 07/19/18 at 20:00 Amlodipine Besylate (Norvasc) 2.5 mg DAILY PO Last administered on 07/21/18 08:35; Admin Dose 2.5 MG; Start 07/20/18 at 09:00 Methylprednisolone Sodium Succinate (Solu-Medrol) 40 mg Q8 IV Last administered on 07/21/18at 06:36; Admin Dose 40 MG; Start 07/20/18 at 14:00 Levofloxacin (Levaquin) 500 mg DAILY@06 PO Last administered on 07/21/18 06:36; Admin Dose 500 MG; Start 07/21/18 at 06:00 Famotidine (Pepcid) 20 mg HS PO Last administered on 07/20/18at 21:40; Admin Dose 20 MG; Start 07/20/18 at 21:00 BARBARA CHOUDHURY Jul 21, 2018 10:54
--- NOTE | 2018-07-21 15:16 | PN ---
Date/Time of Note Date/Time of Note DATE: 07/21/18 TIME: 15:12 Assessment/Plan VTE Prophylaxis Risk score (from Nsg)>0 risk: 4 SCD applied (from Nsg): Yes Pharmacological prophylaxis: heparin Lines/Catheters IV [facility] Peripheral IV Urinary Cath still in place: No Assessment/Plan Hospital Course SUBJECTIVE: Denies any chest pain. Continues to have dyspnea. OBJECTIVE: Physical Exam General: Morbidly obese 77 year-old male sitting in a chair in mild respiratory distress. HEENT: Normocephalic, atraumatic. Eyes: Anicteric sclerae, conjunctivae clear. ENT: Nasal septum midline, oral mucosa moist. Neck supple. Respiratory: Bilaterally diminished breath sounds. No use of accessory muscles of respiration. Cardiovascular: S1, S2 heard. Regular rate and rhythm. Abdomen: Soft, nontender, and nondistended. Bowel sounds positive in all 4 quadr ants. Genitourinary: Deferred. Extremities: No cyanosis, no clubbing. Trace B/L pedal edema. Peripheral pulses palpable. Neurologic: Cranial nerves II through XII grossly intact. The patient is awake, alert, and oriented. Skin: Normal skin turgor. No skin rashes. Labs & Vitals per chart ASSESSMENT & PLAN 77-year-old male with comorbidities including dyslipidemia, hypertension, BPH, and Parkinson's disease who was brought to the emergency room because of shortness of breath, who was found to have evidence of underlying patchy airspace disease in the mid and lower lung zones, who was admitted to inpatient setting for further treatment and evaluation. 1. Acute respiratory failure. -Hypoxic and hypercapnic. -Continue inhaled bronchodilators. -Etiology could be secondary to underlying pneumonia along with a component of interstitial lung disease. -Continue supplemental oxygen. -Continue tapering dose of steroids. -Pulmonology following. 2. Essential hypertension. -Continue antihypertensives. 3. BPH. -Continue Flomax. 4. Dyslipidemia. -Continue statins. 5. Parkinson's disease. -Patient stopped taking antiparkinsonian medications. 6. Chronic right foot plantar pain. -On Pletal for it. -Bilateral lower extremity arterial ultrasound showing moderate small vessel ischemia in the right foot with a decreased ankle brachial index in the right to moderate to severe small vessel ischemia in the left foot with decreased ankle brachial index in the left dorsalis pedis artery. 7. Obesity. -BMI more than 41 kg/m. -Will advise weight reduction. 8. Fluids, electrolytes, and nutrition. -Regular diet. 9. DVT prophylaxis -Subcutaneous heparin. 10. Plan. -Continue antimicrobials. -Await clinical improvement. -Walked the patient around the unit on room air that made the patient tachycardic with O2 saturation dropping down to mid 80s. The patient was seen in collaboration with Dr. Jorge. Result Diagram: 07/21/1853607/21/18536 Results 24hrs Laboratory Tests Test 07/21/18 02:40 07/21/18 05:37 Sodium Level 142 142 Potassium Level 4.7 4.8 Chloride Level 102 100 Carbon Dioxide Level 33 H 33 H Anion Gap 7 9 Blood Urea Nitrogen 33 H 31 H Creatinine 0.86 0.75 Est Glomerular Filtrat Rate mL/min Glucose Level 171 147 Calcium Level 9.5 9.3 Magnesium Level 2.0 2.1 Thyroid Stimulating Hormone (TSH) 0.300 L White Blood Count 4.8 # Red Blood Count 4.80 Hemoglobin 15.0 Hematocrit 46.5 Mean Corpuscular Volume 96.9 Mean Corpuscular Hemoglobin 31.3 Mean Corpuscular Hemoglobin Concent 32.3 Red Cell Distribution Width 12.8 Platelet Count 196 Mean Platelet Volume 9.9 Immature Granulocytes % 0.400 Neutrophils % 89.2 H Lymphocytes % 8.3 L Monocytes % 1.9 Eosinophils % 0.0 Basophils % 0.2 Nucleated Red Blood Cells % 0.0 Immature Granulocytes # 0.020 Neutrophils # 4.3 Lymphocytes # 0.4 L Monocytes # 0.1 L Eosinophils # 0.0 Basophils # 0.0 Nucleated Red Blood Cells # 0.0 Phosphorus Level 4.3 Exam/Review of Systems Vital Signs Vitals Vital Signs Date Temp Pulse Resp B/P (MAP) Pulse Ox O2 O2 Flow FiO2 Time Delivery Rate 07/21/18 3.0 14:29 07/21/18 105 20 14:27 07/21/18 97.5 142/63 95 Nasal 11:15 (89) Cannula 07/21/18 28 05:05 Intake and Output 07/20/18 07/20/18 07/21/18 1515:00 23:00 07:00 IntakeIntake Total 100 ml 880 ml 650 ml BalanceBalance 100 ml 880 ml 650 ml Medications Medications Current Medications IV Flush (NS 3 ml) 3 ml PER PROTOCOL IV ; Start 07/18/18 at 02:00 Ondansetron HCl (Zofran Inj) 4 mg Q6H PRN IV NAUSEA AND/OR VOMITING; Start 07/18/18 at 02:00 Acetaminophen (Tylenol Tab) 650 mg Q6H PRN PO PAIN LEVEL 1-3 OR FEVER; Start 07/18/18 at 02:00 Acetaminophen/ Hydrocodone Bitart ([place] (5/325)) 1 tab Q6H PRN PO PAIN LEVEL 4-6; Start 07/18/18 at 02:00 Heparin Sodium (Porcine) (Heparin (5000 Units/1ml)) 5,000 unit Q12 SC Last administered on 07/21/18 08:46; Admin Dose 5,000 UNIT; Start 07/18/18 at 09:00 Albuterol/ Ipratropium (Duoneb) 3 ml Q2H RESP THERAPY PRN HHN SHORTNESS OF BREATH; Start 07/18/18 at 02:00 Aspirin (Halfprin) 81 mg DAILY PO Last administered on 07/21/18 08:36; Admin Dose 81 MG; Start 07/18/18 at 09:00 Atorvastatin Calcium (Lipitor) 10 mg QHS PO Last administered on 07/20/18at 2 1:41; Admin Dose 10 MG; Start 07/18/18 at 21:00 Cilostazol (Pletal) 50 mg DAILY PO Last administered on 07/21/18 08:35; Admin Dose 50 MG; Start 07/18/18 at 09:00 Docusate Sodium (Colace) 250 mg BID PO Last administered on 07/21/18 08:36; Admin Dose 250 MG; Start 07/18/18 at 09:00 Tamsulosin HCl (Flomax) 0.4 mg DAILY PO Last administered on 07/21/18 08:36; Admin Dose 0.4 MG; Start 07/18/18 at 09:00 Losartan Potassium (Cozaar) 100 mg DAILY PO Last administered on 07/21/18 08:34; Admin Dose 100 MG; Start 07/18/18 at 09:00 Hydrochlorothiazide (Hydrochlorothiazide) 12.5 mg DAILY PO Last administered on 07/21/18 08:33; Admin Dose 12.5 MG; Start 07/18/18 at 09:00 Polyethylene Glycol (Miralax) 17 gm DAILY PRN PO CONSTIPATION Last administered on 07/19/18 06:07; Admin Dose 17 GM; Start 07/18/18 at 22:00 Albuterol/ Ipratropium (Duoneb) 3 ml Q6HWA RESP THERAPY HHN Last administered on 07/21/18 14:25; Admin Dose 3 ML; Start 07/19/18 at 20:00 Amlodipine Besylate (Norvasc) 2.5 mg DAILY PO Last administered on 07/21/18at 08:35; Admin Dose 2.5 MG; Start 07/20/18 at 09:00 Methylprednisolone Sodium Succinate (Solu-Medrol) 40 mg Q8 IV Last administered on 07/21/18at 06:36; Admin Dose 40 MG; Start 07/20/18 at 14:00 Levofloxacin (Levaquin) 500 mg DAILY@06 PO Last administered on 07/21/18at 06:36; Admin Dose 500 MG; Start 07/21/18 at 06:00 Famotidine (Pepcid) 20 mg HS PO Last administered on 07/20/18at 21:40; Admin Dose 20 MG; Start 07/20/18 at 21:00 NICK VERDUZCO NP Jul 21, 2018 15:16
[2018-07-21] MEDS: FAMOTIDINE 20 MG TAB PO SCH (20:51)
[2018-07-21] MEDS: ATORVASTATIN 10 MG TAB PO SCH (20:51)
[2018-07-22] VITALS (11 sets, daily range): BP systolic 115–150; BP diastolic 58–80; PULSE 75–119; RESP 19–20
[2018-07-22] MEDS: LEVOFLOXACIN 500 MG TAB PO SCH (05:36)
[2018-07-22] MEDS: METHYLPREDNISOLONE 40 MG INJ IV SCH (05:36)
[2018-07-22] MEDS: DOCUSATE SODIUM 250 MG CAP PO SCH (08:15)
[2018-07-22] MEDS: TAMSULOSIN (SR) 0.4 MG CAP PO SCH (08:15)
[2018-07-22] MEDS: AMLODIPINE 2.5 MG TAB PO SCH (08:16)
[2018-07-22] MEDS: HYDROCHLOROTHIAZIDE 12.5 MG CAP PO SCH (08:16)
[2018-07-22] MEDS: ASPIRIN (EC) 81 MG TAB PO SCH (08:17)
[2018-07-22] MEDS: LOSARTAN 50 MG TAB PO SCH (08:17)
[2018-07-22] MEDS: CILOSTAZOL 100 MG TAB PO SCH (08:17)
[2018-07-22] MEDS: HEPARIN 5,000 UNIT/1 ML VIAL SC SCH (08:27)
[2018-07-22] MEDS ORDERED: MED4DP PO (08:48)
[2018-07-22] MEDS: ALBUTEROL/IPRATROPIUM (NEB) 3 ML AMP HHN SCH ×2 (08:55→15:11)
--- NOTE | 2018-07-22 09:58 | CONS ---
Date/Time of Note Date/Time of Note DATE: 07/22/18 TIME: 09:56 Assessment/Plan Assessment/Plan Assessment/Plan Assessment and recommendations; 1. Patient admitted with acute bronchitis with significant interval improve ment. 2. Likely underlying chronic type II respiratory failure due to underlying sleep apnea. 3. History of hypertension 4. History of Parkinson's disease. 5. BPH. Continue current supportive care. Discontinue Solu-Medrol. Consider discharge. Result Diagram: 07/21/1837 07/21/1837 Consultation Date/Type/Reason Admit Date/Time Jul 17, 2018 at 20:13 Initial Consult Date 07/20/18 Type of Consult Pulmonary History of presenting illness; patient is a very pleasant 77-year-old male who came into the hospital with a few days history of chest congestion, coughing, yellow sputum production as well as wheezing. Patient denies any high fever, chills any body aches or myalgias. According to him he was doing fine until symptoms started 2 days ago. Past medical history; 1. Possibly underlying interstitial lung disease. 2. Possible underlying Sleep apnea. 3. Hyperlipidemia. 4. Hypertension. 5. Parkinson's disease. 6. BPH. Medications; reviewed. Allergies; none. Social history; quit smoking 20 years ago. Family history; patient is , has 3 children. 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 Review of systems; denies any headache, seizures. Any sinus symptoms. Complains of coughing chest congestion and wheezing as outlined above. Denies any abdominal pain, nausea vomiting. Any edema. Any orthopnea. Any weight loss. Complains of mild chronic dyspnea on exertion. Complains of snoring and excessive daytime sleepiness. Denies any melena hematochezia or any urinary s ymptoms. General exam; elderly male, awake alert, currently in no distress. Requesting Provider: NICK VERDUZCO NP 24 HR Interval Summary Free Text/Dictation Patient's condition is significantly improved. Denies any coughing, wheezing, sputum production or shortness of breath. Patient has been ambulatory. General exam; elderly male, awake alert, currently in no distress. Exam/Review of Systems Vital Signs Vitals Vital Signs Date Temp Pulse Resp B/P (MAP) Pulse Ox O2 O2 Flow FiO2 Time Delivery Rate 07/22/18 104 08:35 07/22/18 98.1 19 150/76 99 08:04 (100) 07/22/18 3.0 04:53 07/22/18 Nasal 02:36 Cannula 07/21/18 28 05:05 Intake and Output 07/21/18 07/21/18 07/22/18 1515:00 23:00 07:00 IntakeIntake Total 860 ml 720 ml BalanceBalance 860 ml 720 ml Exam H EENT exam; supple neck, no JVD. No lymphadenopathy. Midline trachea. No thyromegaly. Pharynx is clear. No neck masses. Chest exam; clear to auscultation. S1-S2 audible, no murmurs. Regular rhythm. Abdomen exam; soft, protuberant. Nontender. Bowel sounds audible. Extremity exam; peripheral edema clubbing. SWEETBREAD TRIMMER exam; no focal deficit. Medications Medications Current Medications IV Flush (NS 3 ml) 3 ml PER PROTOCOL IV ; Start 07/18/18 at 02:00 Ondansetron HCl (Zofran Inj) 4 mg Q6H PRN IV NAUSEA AND/OR VOMITING; Start 07/18/18 at 02:00 Acetaminophen (Tylenol Tab) 650 mg Q6H PRN PO PAIN LEVEL 1-3 OR FEVER; Start 07/18/18 at 02:00 Acetaminophen/ Hydrocodone Bitart ([place] (5/325)) 1 tab Q6H PRN PO PAIN LEVEL 4-6; Start 07/18/18 at 02:00 Heparin Sodium (Porcine) (Heparin (5000 Units/1ml)) 5,000 unit Q12 SC Last administered on 07/22/18at 08:27; Admin Dose 5,000 UNIT; Start 07/18/18 at 09:00 Albuterol/ Ipratropium (Duoneb) 3 ml Q2H RESP THERAPY PRN HHN SHORTNESS OF BREATH; Start 07/18/18 at 02:00 Aspirin (Halfprin) 81 mg DAILY PO Last administered on 07/22/18at 08:17; Admin Dose 81 MG; Start 07/18/18 at 09:00 Atorvastatin Calcium (Lipitor) 10 mg QHS PO Last administered on 07/21/18at 20:51; Admin Dose 10 MG; Start 07/18/18 at 21:00 Cilostazol (Pletal) 50 mg DAILY PO Last administered on 07/22/18at 08:17; Admin Dose 50 MG; Start 07/18/18 at 09:00 Docusate Sodium (Colace) 250 mg BID PO Last administered on 07/22/18 08:15; Admin Dose 250 MG; Start 07/18/18 at 09:00 Tamsulosin HCl (Flomax) 0.4 mg DAILY PO Last administered on 07/22/18 08:15; Admin Dose 0.4 MG; Start 07/18/18 at 09:00 Losartan Potassium (Cozaar) 100 mg DAILY PO Last administered on 07/22/18 08:17; Admin Dose 100 MG; Start 07/18/18 at 09:00 Hydrochlorothiazide (Hydrochlorothiazide) 12.5 mg DAILY PO Last administered on 07/22/18 08:16; Admin Dose 12.5 MG; Start 07/18/18 at 09:00 Polyethylene Glycol (Miralax) 17 gm DAILY PRN PO CONSTIPATION Last administered on 07/19/18 06:07; Admin Dose 17 GM; Start 07/18/18 at 22:00 Albuterol/ Ipratropium (Duoneb) 3 ml Q6HWA RESP THERAPY HHN Last administered on 07/21/18 20:11; Admin Dose 3 ML; Start 07/19/18 at 20:00 Amlodipine Besylate (Norvasc) 2.5 mg DAILY PO Last administered on 07/22/18 08:16; Admin Dose 2.5 MG; Start 07/20/18 at 09:00 Methylprednisolone Sodium Succinate (Solu-Medrol) 40 mg Q8 IV Last administered on 07/22/18 05:36; Admin Dose 40 MG; Start 07/20/18 at 14:00 Levofloxacin (Levaquin) 500 mg DAILY@06 PO Last administered on 07/22/18 05:36; Admin Dose 500 MG; Start 07/21/18 at 06:00 Famotidine (Pepcid) 20 mg HS PO Last administered on 07/21/18 20:51; Admin Dose 20 MG; Start 07/20/18 at 21:00 BARBARA CHOUDHURY Jul 22, 2018 09:58
[2018-07-22] MEDS ORDERED: ALBU8.5H8 INH (10:25)
[2018-07-22] MEDS ORDERED: ADV25050 INHALATION (10:25)
--- NOTE | 2018-07-22 10:26 | PDOCDIS ---
Discharge Instructions CONDITION [id number] Patient Condition: [id number] Stable HOME CARE INSTRUCTIONS: [id number] Diet Instructions: [id number] Low Fat /Cholesterol FOLLOW UP/APPOINTMENTS Follow-up Plan Master Mahajan MD Specialty: Pulmonary Medicine Office Address [address] [facility] [address] [place], [place] [id number] Office OTHER ORDERS: Other Orders: 1. Resume home medications. 2. Start taking inhaled bronchodilators. 3. Take a low-cholesterol diet as tolerated. 4. Follow-up with outpatient pulmonology (Dr. Mahajan) in 2 weeks. Please call for appointment. 5. Please go to the nearest emergency room if you have any chest pain, significant shortness of breath, or any other unusual signs/symptoms. 6. Please follow-up with your primary care physician 2 weeks. NICK VERDUZCO NP Jul 22, 2018 10:26
--- NOTE | 2018-07-22 10:56 | DS ---
Date/Time of Note Date/Time of Note DATE: 07/22/18 TIME: 10:52 Discharge Summary Admission/Discharge Info Admit Date/Time Jul 17, 2018 at 20:13 Discharge Date/Time Discharge Diagnosis 1. Acute respiratory failure. Hypoxic and hypercapnic. 2. Acute tracheobronchitis. 3. Community acquired pneumonia. 4. Essential hypertension. 5. BPH. 6. Dyslipidemia. 7. Pulmonary hypertension. 8. Parkinson's disease. 9. Chronic right foot plantar pain. 10. Obesity. 11. Interstitial lung disease of unclear etiology. Patient Condition: Stable Consults 1. Simon Ashraf MD,Pulmonology. 2. Enoch Garcia MD, Cardiology. Procedures CT Pulmonary Angiogram pulmonary IMPRESSION: No evidence of pulmonary thromboembolic disease to the proximal segmental arterial level. Patchy ground-glass opacification / consolidation in the right greater than left lower lobes, suspicious for pneumonia. Dilated main pulmonary artery, correlate for pulmonary arterial hypertension. 2D Echocardiogram Conclusions Normal left ventricular systolic function. Overall, normal left ventricular systolic function. Not all segments visualized. Normal left ventricular cavity size. Moderate concentric left ventricular hypertrophy. Ejection fraction is visually estimated at 55 %. Tissue Doppler/Mitral Doppler indices are consistent with impaired relaxation (Stage I diastolic dysfunction). There is mild enlargement of left atrium. Normal appearance and function of the mitral valve with trace physiologic regurgitation. No hemodynamically significant aortic stenosis by Doppler. Aortic cusps appear mildly calcified. Trace to mild aortic valve regurgitation. Normal appearance of the tricuspid valve. Unable to obtain RVSP due to minimal presence of tricuspid regurgitation. Hx of Present Illness This is a 77-year-old male with comorbidities including dyslipidemia, hypertension, BPH, and Parkinson's disease who was brought to the emergency room because of shortness of breath, who was found to have evidence of underlying patchy airspace disease in the mid and lower lung zones, who was admitted to inpatient setting for further treatment and evaluation. Hospital Course The patient's chest x-ray done in the emergency room was showing patchy airspace disease in the mid and lower lung zones consistent with pulmonary edema or bilateral pneumonia. The patient was started on inhaled bronchodilators, antibiotics, and diuretic therapy. The patient's BNP on the day of admission was 575. The patient's repeat chest x-ray that was done on 07/19/2018 showed worsening infiltrates. However, the patient's repeat BNP was within normal limits. The patient's 2D echocardiogram also revealed preserved left ventricular ejection fraction with stage I diastolic dysfunction. Therefore, cardiology consult was obtained for expert evaluation. Core Layer Machine Operator conveyed that the patient does not have any heart failure. Meanwhile, the patient's madrid cultures remained negative including influenza A and B; and antigen rapid strep., Nevertheless, the patient was maintained on IV antibiotic therapy. The patient underwent a CT pulmonary angiogram on 07/19/2018 that was showing no evidence of any pulmonary thromboembolic disease. However, it showed a patchy ground glass opacification/consolidation right greater than left lower lobes, suspicious for pneumonia. Therefore, the patient was treated for community- acquired pneumonia. At the patient's CT scan also revealed interstitial lung disease of unclear etiology. As per pulmonology service this represent possible changes from o ccupational exposure. The patient was started on tapering dose of IV steroids with improvement in the patient's hypoxia and hypercapnia. The patient needs outpatient pulmonary evaluation including a sleep study for evaluation of any obstructive sleep apnea. The patient's CT pulmonary angiogram also revealed evidence of pulmonary hypertension with a dilated main pulmonary artery. The patient's pulmonary hypertension could be from chronic hypoxia as the patient has evidence of interstitial changes in the lungs. The patient was maintained on calcium channel blockers. The patient was noticed to be desaturating with ambulation even with the treatment with antibiotic therapy and steroids. Therefore, home health was arranged for home oxygen delivery for a O2 use while the ambulation. The patient's chronic problems include essential hypertension. The patient was maintained on antihypertensives for the same. The patient has a history of dyslipidemia. He was maintained on statins. The patient was maintained on Flomax for his prostatic hypertrophy. The patient was also complaining of chronic right foot plantar pain. The patient was placed on Pletal by his outpatient provider. The patient underwent a bilateral lower extremity arterial ultrasound that was showing moderate small vessel ischemia in the right foot with decreased ankle brachial index in the right along with moderate to severe small vessel ischemia in the left foot with decreased ankle branchial index in the left dorsalis pedis artery. The patient was continued on antiplatelet therapy. The patient has a history of Parkinson's disease and he was on medications for this for a while. However, he discontinued those stating that that they did not help him. The patient responded slowly to the treatment strategy and the patient is currently stable to be discharged home with home oxygen. The patient's daughter Heike was called and informed about the patient's status and was updated on the treatment strategy and the necessity to follow-up with outpatient pulmonology. Discharge Instructions 1. Resume home medications. 2. Start taking inhaled bronchodilators. 3. Take a low-cholesterol diet as tolerated. 4. Follow-up with outpatient pulmonology (Dr. Mahajan) in 2 weeks. Please call for appointment. 5. Please go to the nearest emergency room if you have any chest pain, significant shortness of breath, or any other unusual signs/symptoms. 6. Please follow-up with your primary care physician 2 weeks. The patient verbalized understanding of his discharge instructions. At this time I would like to thank all the consultants for seeing the patient and providing clinical recommendations. The patient was seen in collaboration with Dr. Jorge. Home Meds Active Scripts Salmeterol Xinaf/Fluticasone* (Advair*) 250-50 Diskus Inhaler, 1 INH INHALATION BID, #1 INHALER Prov:NICK VERDUZCO CLEARANCE CENTER MANAGER 07/22/18 Albuterol Sulfate* (Proair HFA*) 8.5 Gm Hfa.aer.ad, 2 PUFF INH Q6H PRN for WHEEZING AND SOB, #1 INHALER Prov:NICK VERDUZCO CLEARANCE CENTER MANAGER 07/22/18 Methylprednisolone* (Medrol* DOSE PACK) 4 Mg/Dose-Pack Tab.ds.pk, 4 MG PO . DIRECTED, #1 PACKET Prov:NICK VERDUZCO CLEARANCE CENTER MANAGER 07/22/18 Reported Medications Memantine HCl/Donepezil HCl (Namzaric 28 mg-10 mg Capsule) 1 Each Cap.spr.24, 1 EACH PO 07/28/17 Aspirin* (Aspirin* EC) 81 Mg Tablet.dr, 81 MG PO DAILY, TAB 07/28/17 Atorvastatin Calcium (Atorvastatin Calcium) 10 Mg Tablet, 10 MG PO QHS, #30 TAB 07/28/17 Tamsulosin Hcl* (Tamsulosin Hcl*) 0.4 Mg Cap.er.24h, 0.4 MG PO DAILY, CAP 07/28/17 Fsxghatxed-Ctglfqhgmj-RPNG (Tribenzor) 20-5-12.5 Mg Tablet, 1 TAB PO DAILY, TAB 07/28/17 Cilostazol* (Cilostazol*) 50 Mg Tablet, 50 MG PO DAILY, TAB 07/28/17 Celecoxib* (Celebrex*) 100 Mg Capsule, 100 MG PO DAILY, CAP 07/28/17 Docusate Sodium* (Colace*) 250 Mg Capsule, 250 MG PO BID, #60 CAP 07/28/17 Ergocalciferol (Vitamin D2) (VITAMIN D2) 50,000 Unit Capsule, 61835 UNIT PO, CAP 07/28/17 Follow-up Plan Master Mahajan MD Specialty: Pulmonary Medicine Office Address [address] [place] [address] Office Primary Care Provider Not On Staff Doctor Time spent on discharge: > 30 minutes NICK VERDUZCO NP Jul 22, 2018 10:56
--- NOTE | 2018-07-22 14:44 | CONS ---
Date/Time of Note Date/Time of Note DATE: 07/22/18 TIME: 14:43 Consult Date/Type/Reason Admit Date/Time Jul 17, 2018 at 20:13 Initial Consult Date 07/19/18 Requesting Provider: NICK MCCLENDON NP Subjective cardiology follow up note: S; D/W staff and tele was reviewed. pt remains in NSR/sinus tachy NO chest pain or pressure He has less cough and shortness of breath dW Dennis Mcclendon RIPRAP WORKER no PND orthpnea O: General: no acute distress HEENT: NC/AT. pupils are equal. round. NECK: NO JVD. no stridor. CV: Tachycardic. systolic murmur; no gallop or rubs. PULM: no wheezing . , Mild rhonchi. GI: SOFT, NT, ND, no rebound or guarding Extremity: trace B/L LE edema. no clubbing. neuro: awake and alert, OX3. Psych: calm and pleasant rectal: deferred : normal EKG was personally reviewed which shows: Normal sinus rhythm. Low voltage. Incomplete right bundle branch block also Echocardiogram personally reviewed which shows: Normal left ventricular systolic function. Overall, normal left ventricular systolic function. Not all segments visualized. Normal left ventricular cavity size. Moderate concentric left ventricular hypertrophy. Ej ection fraction is visually estimated at 55 %. Tissue Doppler/Mitral Doppler indices are consistent with impaired relaxation (Stage I diastolic dysfunction). There is mild enlargement of left atrium. Normal appearance and function of the mitral valve with trace physiologic regurgitation. No hemodynamically significant aortic stenosis by doppler. Aortic cusps appear mildly calcified. Trace to mild aortic valve regurgitation. Normal appearance of the tricuspid valve. Unable to obtain RVSP due to minimal presence of tricuspid regurgitation Chest x-ray was personally reviewed which per radiology report also shows: Mildly increased interstitial edema suggesting cardiopulmonary congestion. Possibly loculated small left pleural effusion is unchanged. No pneumothorax. Cardiomegaly unchanged. Vascular calcifications of the aorta are present compatible with atherosclerosis. CTPA 07/19/18" No evidence of pulmonary thromboembolic disease to the proximal segmental arterial level. Patchy ground-glass opacification / consolidation in the right greater than left lower lobes, suspicious for pneumonia. Dilated main renal artery, correlate for pulmonary arterial hypertension. Objective Vital Signs Date Temp Pulse Resp B/P (MAP) Pulse Ox O2 O2 Flow FiO2 Time Delivery Rate 07/22/18 119 12:22 1/11/19 98.3 19 148/64 92 11:30 (92) 07/22/18 Nasal 2.0 10:40 Cannula 07/21/18 28 05:05 Intake and Output 07/21/18 07/21/18 07/22/18 1515:00 23:00 07:00 IntakeIntake Total 860 ml 720 ml BalanceBalance 860 ml 720 ml Results/Medications Result Diagram: 07/21/1837 07/21/1837 Medications Current Medications IV Flush (NS 3 ml) 3 ml PER PROTOCOL IV ; Start 07/18/18 at 02:00 Ondansetron HCl (Zofran Inj) 4 mg Q6H PRN IV NAUSEA AND/OR VOMITING; Start 07/18/18 at 02:00 Acetaminophen (Tylenol Tab) 650 mg Q6H PRN PO PAIN LEVEL 1-3 OR FEVER; Start 07/18/18 at 02:00 Acetaminophen/ Hydrocodone Bitart ([place] (5/325)) 1 tab Q6H PRN PO PAIN LEVEL 4-6; Start 07/18/18 at 02:00 Heparin Sodium (Porcine) (Heparin (5000 Units/1ml)) 5,000 unit Q12 SC Last administered on 07/22/18at 08:27; Admin Dose 5,000 UNIT; Start 07/18/18 at 09:00 Albuterol/ Ipratropium (Duoneb) 3 ml Q2H RESP THERAPY PRN HHN SHORTNESS OF BREATH; Start 07/18/18 at 02:00 Aspirin (Halfprin) 81 mg DAILY PO Last administered on 07/22/18at 08:17; Admin Dose 81 MG; Start 07/18/18 at 09:00 Atorvastatin Calcium (Lipitor) 10 mg QHS PO Last administered on 07/21/18at 20:51; Admin Dose 10 MG; Start 07/18/18 at 21:00 Cilostazol (Pletal) 50 mg DAILY PO Last administered on 07/22/18at 08:17; Admin Dose 50 MG; Start 07/18/18 at 09:00 Docusate Sodium (Colace) 250 mg BID PO Last administered on 07/22/18at 08:15; Admin Dose 250 MG; Start 07/18/18 at 09:00 Tamsulosin HCl (Flomax) 0.4 mg DAILY PO Last administered on 07/22/18 08:15; Admin Dose 0.4 MG; Start 07/18/18 at 09:00 Losartan Potassium (Cozaar) 100 mg DAILY PO Last administered on 07/22/18 08:17; Admin Dose 100 MG; Start 07/18/18 at 09:00 Hydrochlorothiazide (Hydrochlorothiazide) 12.5 mg DAILY PO Last administered on 07/22/18 08:16; Admin Dose 12.5 MG; Start 07/18/18 at 09:00 Polyethylene Glycol (Miralax) 17 gm DAILY PRN PO CONSTIPATION Last administered on 07/19/18 06:07; Admin Dose 17 GM; Start 07/18/18 at 22:00 Albuterol/ Ipratropium (Duoneb) 3 ml Q6HWA RESP THERAPY HHN Last administered on 07/21/18 20:11; Admin Dose 3 ML; Start 07/19/18 at 20:00 Amlodipine Besylate (Norvasc) 2.5 mg DAILY PO Last administered on 07/22/18 08:16; Admin Dose 2.5 MG; Start 07/20/18 at 09:00 Levofloxacin (Levaquin) 500 mg DAILY@06 PO Last administered on 07/22/18 05:36; Admin Dose 500 MG; Start 07/21/18 at 06:00 Famotidine (Pepcid) 20 mg HS PO Last administered on 07/21/18 20:51; Admin Dose 20 MG; Start 07/20/18 at 21:00 Assessment/Plan Chief Complaint/Hosp Course 1. Dyspnea and subjective fever most likely pneumonia/bronchitis as opposed to congestive heart failure: Patient with normal ejection fracture and no significant elevation of PA pressure in the echo. His pro-BNP is also not significantly elevated either. 2. pneumonia 3. Hypertension 4. R/O dyslipidemia Recommendations: off lasix abx as per IM Follow-up with the pulmonary recommendations Continue Norvasc cont other BP med will f/u prn Thank you for his referral. We will continue to follow along with you LAURIE MCBRIDE MD [facility] LAURIE MCBRIDE MD Jul 22, 2018 14:44
== END 2018-07-22 18:11 | disposition home or self-care (01) | DRG 193 ==
LOC: E/R 17:54 → 6WM 20:13
PROVIDERS: ADMIT Internal Medicine; ATTEND Internal Medicine
DX: J18.9 Pneumonia, unspecified organism (principal); J96.01 Acute respiratory failure with hypoxia; J96.02 Acute respiratory failure with hypercapnia; Z68.41 Body mass index [BMI] 40.0-44.9, adult; J84.9 Interstitial pulmonary disease, unspecified; J44.0 Chronic obstructive pulmonary disease with (acute) lower respiratory infection; J20.9 Acute bronchitis, unspecified; I10 Essential (primary) hypertension; N40.0 Benign prostatic hyperplasia without lower urinary tract symptoms; G20 Parkinson's disease; M79.671 Pain in right foot; E78.5 Hyperlipidemia, unspecified; E66.01 Morbid (severe) obesity due to excess calories; I27.20 Pulmonary hypertension, unspecified
CPT/HCPCS: 36415; 36600; 71045; 71275; 80048; 80053; 80061; 81001; 82803; 83036; 83605; 83735; 83880; 84100; 84443; 84484; 85025; 85610; 85730; 87040; 87070; 87086; 87400; 87880; 93005; 93306; 93922; 93970; 94640; J1644; J1940; J1956; J2920; J7030; Q9967